=== PATIENT | male | born 1995 | race Caucasian/White ===

== ENCOUNTER 2016-06-19 01:30 | Emergency (ER) | payer BC ==
[2016-06-19 01:42] VITALS: BP 140/75
[2016-06-19] MEDS ORDERED: Naproxen 500 MG Tab PO ONE (01:54)
[2016-06-19] MEDS ORDERED: Penicillin V Potassium 500 MG Tab PO ONE (01:54)
--- NOTE | 2016-06-19 01:59 | EDM.PDOC ---
ED HPI ENT - General Chief Complaint: ENT Problem Stated Complaint: 2 TEETH HURTING Time Seen by Provider: 06/19/16 01:39 Source of Information: Reports: Patient, RN notes reviewed History Limitations: Reports: No limitations - History of Present Illness INITIAL COMMENTS - FREE TEXT/NARRATIVE: The patient states that he has had left upper and left lower tooth pain for about a year, but that it has gotten worse over the past 4 or 5 days. He states that he is having difficulty sleeping. He last saw a dentist in October or November 2015 and was told that he needs to see an oral surgeon for removal of several teeth. He has not gone to an oral surgeon, citing cost. No recent fever or oral drainage. - Related Data Allergies/ADRs: Allergies Allergy/AdvReac Type Severity Reaction Status Date / Time No Known Allergies Allergy Verified 06/19/16 01:37 Home Meds: Home Meds Naproxen 1 tab PO Q12H PRN #20 tablet 06/19/16 [Rx] Penicillin V Potassium 1 tab PO Q6HR #40 tab 06/19/16 [Rx] Past Medical History Genitourinary History: Reports: Renal calculus - Past Surgical History HEENT Surgical History: Reports: Adenoidectomy, Tonsillectomy Musculoskeletal Surgical History: Reports: Arthroscopic procedure (left knee) Social & Family History - Tobacco Use Smoking Status *Q: Current Every Day Smoker Years of Tobacco use: 9 Packs/Tins Daily: 2 - Caffeine Use Caffeine Use: Reports: Coffee, Soda - Alcohol Use Alcohol Use History: Yes Alcohol Use Frequency: Socially - Recreational Drug Use Recreational Drug Use: Yes Drug Use in Last 12 Months: Yes Recreational Drug Type: Reports: Marijuana/Hashish, Methamphetamine Recreational Drug Last Use: Late 2015 - Living Situation & Occupation Living situation: Reports: single, with significant other (Girlfriend and her daughter) 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[employer]) ED ROS ENT - Review of Systems Review Of Systems: See Below Constitutional: Reports: no symptoms HEENT: Reports: No symptoms Respiratory: Reports: No Symptoms Cardiovascular: Reports: No symptoms Endocrine: Reports: no symptoms GI/Abdominal: Reports: No symptoms : Reports: no symptoms Musculoskeletal: Reports: no symptoms Skin: Reports: no symptoms Neurological: Reports: No Symptoms Psychiatric: Reports: No symptoms Hematologic/Lymphatic: Reports: no symptoms Immunologic: Reports: no symptoms ED EXAM, ENT - Physical Exam Exam: See Below Exam Limited By: No limitations General Appearance: alert, WD/WN, no apparent distress Eye Exam: bilateral eye: EOMI, normal inspection Ears: normal external exam, normal canal, hearing grossly normal, normal TMs Nose: normal inspection, normal mucousa, no blood Mouth/Throat: Normal lips, Normal oropharynx, Other (Tooth #5 absent. Tooth #6 carious. Tooth #15 carious (possible source of pain). Tooth #16 with possible fracture (possible source of pain). Tooth #17 absent. Tooth #21 carious (and likely source of pain). Tooth #32 absent. No significant gingival swelling, and no oral abscess seen.) Head: atraumatic, normocephalic Neck: normal inspection, supple, non-tender, full range of motion. No: lymphadenopathy (L), lymphadenopathy (R) Course - Vital Signs Last Recorded V/S: Last Vital Signs Temp 37.7 C 06/19/16 01:38 Pulse 94 06/19/16 01:38 Resp 16 06/19/16 01:38 BP 140/75 06/19/16 01:38 Pulse Ox 99 06/19/16 01:38 - Orders/Labs/Meds Meds: Medications Discontinued Medications Generic Name Dose Route Start Last Admin Trade Name Freq PRN Reason Stop Dose Admin Naproxen 500 mg 06/19/16 01:54 Naprosyn PO 06/19/16 01:55 ONETIME ONE Penicillin V Potassium 500 mg 06/19/16 01:54 Veetids PO 06/19/16 01:55 ONETIME ONE - Re-Assessments/Exams Free Text/Narrative Re-Assessment/Exam: 06/19/16 01:55 The patient has several teeth that are carious and likely causing his dental pain. Additionally, however, it appears, and the patient confirms, that he has not brushed his teeth in a long time and is not taking care of his teeth at all. The patient was advised to followup with an oral surgeon, as he had been instructed to by his dentist. In the meantime, I am recommending that he begin brushing his teeth regularly. I have started the patient on penicillin and naproxen, and will e-prescribe the same for 10 days. Departure - Departure Time of Disposition: 01:56 Disposition: Home, Self-Care 01 Condition: good Clinical Impression: Dental caries Prescriptions: Penicillin V Potassium 1 tab PO Q6HR #40 tab Naproxen 1 tab PO Q12H PRN #20 tablet PRN Reason: Pain Referrals: Tremaine Aguilar Jr, MD [Primary Care Provider] - Forms: ED Department Discharge, Return to Work/School Form Additional Instructions: You were seen in the emergency room this morning for left upper and left lower dental pain. On examination, you have several significant cavities, which are likely the cause of your pain. You have been started on the antibiotic penicillin. Take one tablet every 6 hours, as prescribed. Finish the entire prescription unless told otherwise by a dentist or oral surgeon. You have been started on the pain reliever naproxen. Take one tablet every 12 hours, with food, as needed for pain. It is IMPERATIVE that you followup with an oral surgeon as instructed by your dentist. The ER is unable to treat dental issues.
== END 2016-06-19 02:12 | disposition home or self-care (01) ==
LOC: JD.ED 01:30
DX: K02.9 Dental caries, unspecified (principal); F17.210 Nicotine dependence, cigarettes, uncomplicated; Z79.899 Other long term (current) drug therapy; Z98.890 Other specified postprocedural states
CPT/HCPCS: 99282; A9270; 99283

== ENCOUNTER 2017-01-11 16:42 | Emergency (ER) | payer BC ==
[2017-01-11 16:55] VITALS: BP 148/92
--- NOTE | 2017-01-11 17:02 | EDM.PDOC ---
ED HPI GENERAL MEDICAL PROBLEM - General Chief Complaint: Upper Extremity Injury/Pain Stated Complaint: Right hand injury Time Seen by Provider: 01/11/17 17:01 Source of Information: Reports: Patient, RN Notes Reviewed History Limitations: Reports: No Limitations - History of Present Illness INITIAL COMMENTS - FREE TEXT/NARRATIVE: 21 year old male presents to the clinic today with puncture wound to his right hand. He punched the visor in his car and suffered a puncture wound from a piece of metal. The wound is located to the web, between the right 3rd and 4th fingers. He is unsure of his last tetanus. He has full ROM and strength to his right hand. No numbness or tingling. right Knuckle Pain Score (Numeric/FACES): 5 - Related Data Allergies Allergy/AdvReac Type Severity Reaction Status Date / Time No Known Allergies Allergy Verified 01/11/17 16:55 Home Meds: Home Meds . [No Known Home Meds] 01/11/17 [History] Past Medical History Cardiovascular History: Reports: Heart Murmur, Other (See Below) Other Cardiovascular History: heart murmur as a child, not treated Genitourinary History: Reports: Renal Calculus - Past Surgical History HEENT Surgical History: Reports: Adenoidectomy, Tonsillectomy Musculoskeletal Surgical History: Reports: Arthroscopic Procedure Social & Family History - Family History Family Medical History: Noncontributory - Tobacco Use Smoking Status *Q: Current Every Day Smoker Years of Tobacco use: 9 Packs/Tins Daily: 2 - Caffeine Use Caffeine Use: Reports: Coffee - Recreational Drug Use Recreational Drug Use: No Drug Use in Last 12 Months: Yes Recreational Drug Type: Reports: Marijuana/Hashish, Methamphetamine Recreational Drug Last Use: Late 2015 - Living Situation & Occupation Living situation: Reports: Single, with Significant Other Occupation: Employed Review of Systems - Review of Systems Review Of Systems: See Below Musculoskeletal: Reports: Hand Pain Skin: Reports: Wound Neurological: Reports: No Symptoms. Denies: Numbness, Tingling ED EXAM, GENERAL - Physical Exam Exam: See Below Exam Limited By: No Limitations General Appearance: Alert, WD/WN, No Apparent Distress Extremities: Other (Full ROM to all 5 digits with equal strength. He can differentiate sharp versus dull sensation to both sides of fingers. CMS intact. Modified cristy's test is negative. ) Neurological: Alert, No Motor/Sensory Deficits Skin Exam: Warm, Dry, Normal Color, Other (0.5cm puncture wound to web between 3rd and 4th fingers. No surround erythema. Wound is somewhat deep. ) ED TRAUMA EXTREMITY PROCEDURES - Laceration/Wound Repair Right Hand Lac/Wound Length In cm: 0.5 Appearance: Subcutaneous, Linear, Clean Distal NVT: Neuro & Vascular Intact, No Tendon Injury Anesthetic Type: Local Local Anesthesia - Lidocaine (Xylocaine): 1% Plain Local Anesthetic Volume: 2cc Skin Prep: Saline Saline Irrigation (cc's): 60 Exploration/Debridement/Repair: Wound Explored, In a Bloodless Field, Explored to Base, No Foreign Material Found Suture Size: 4-0 # of Sutures: 1 Suture Type: Nylon, Interrupted, Simple Sterile Dressing Applied: Nurse Tetanus Status Addressed: Yes Complications: No Course - Vital Signs Last Recorded V/S: Last Vital Signs Temp 97 F 01/11/17 16:44 Pulse 81 01/11/17 16:44 Resp 18 01/11/17 16:44 BP 148/92 H 01/11/17 16:44 Pulse Ox 98 01/11/17 16:44 - Orders/Labs/Meds Orders: Active Orders 24 hr Category Date Time Status Vaccines to be Administered [RC] PER UNIT ROUTINE Care 01/11/17 17:18 Ordered Meds: Medications Discontinued Medications Generic Name Dose Route Start Last Admin Trade Name Carson PRN Reason Stop Dose Admin Diphtheria/Tetanus/Acell Pertussis 0.5 ml 01/11/17 17:18 Adacel IM 01/11/17 17:19 .ONCE ONE Lidocaine HCl 50 ml 01/11/17 17:13 01/11/17 17:17 Xylocaine 1% SUBCUT 01/11/17 17:14 50 ml NOW STA Administration Departure - Departure Time of Disposition: 17:37 Disposition: Home, Self-Care 01 Condition: Good Clinical Impression: Laceration, Tetanus toxoid inoculation - Discharge Information Referrals: Tremaine Aguilar Jr, MD [Primary Care Provider] - Forms: ED Department Discharge Additional Instructions: Laceration with suture repair Try to keep initial dressing in place for 24 hours After 24 hours, you can gently wash the wound with gentle soap and water Do not submerge the area in water until the sutures are out Apply antibiotic ointment and keep the wound covered for first 2-3 days then leave open to air Keep wound covered if there is a chance it can get dirty Sutures need to be removed in 7 days [facility] removes sutures for free. Their hours are 8am -6pm Sunday through Sunday. Return to clinic if signs or symptoms of infection arise, including increased redness, swelling, drainage, or fever Tylenol or Ibuprofen as needed for pain - My Orders Last 24 Hours: My Active Orders 01/11/17 17:18 Vaccines to be Administered [RC] PER UNIT ROUTINE - Assessment/Plan Last 24 Hours: My Active Orders 01/11/17 17:18 Vaccines to be Administered [RC] PER UNIT ROUTINE
[2017-01-11] MEDS ORDERED: Lidocaine 1% 50 ML MDV SUBCUT STA (17:13)
[2017-01-11] MEDS ORDERED: Diphtheria,Pertussis(Acell),Tetanus Vaccine 0.5 ML SDV IM ONE (17:18)
== END 2017-01-11 17:50 | disposition home or self-care (01) ==
LOC: JD.ED 16:42
DX: S61.411A Laceration without foreign body of right hand, initial encounter (principal); F17.210 Nicotine dependence, cigarettes, uncomplicated; W25.XXXA Contact with sharp glass, initial encounter; Z23 Encounter for immunization
CPT/HCPCS: 12001; 90471; 90715; 99283-25

== ENCOUNTER 2017-07-29 12:17 | Emergency (ER) | payer BC ==
[2017-07-29 12:29] VITALS: BP 153/103
[2017-07-29] MEDS ORDERED: Clindamycin Phosphate 600 MG in Sodium Chloride 0.9% 100 ML IV ONE (12:45)
[2017-07-29] MEDS ORDERED: Sodium Chloride 0.9% 1,000 ML IV ONE (12:45)
[2017-07-29] MEDS ORDERED: LORazepam 2 MG/ML SDV IVPUSH ONE (12:46)
--- NOTE | 2017-07-29 12:47 | EDM.PDOCBH ---
ED HPI GENERAL MEDICAL PROBLEM - General Chief Complaint: Drug or Alcohol Abuse Stated Complaint: ISSUES FROM USING METH Time Seen by Provider: 07/29/17 12:35 Source of Information: Reports: Patient History Limitations: Reports: No Limitations - History of Present Illness INITIAL COMMENTS - FREE TEXT/NARRATIVE: Jono is a 22yo male presents ambulatory to ED, drove himself here after injecting Methamphetamine mixed with Propel into his left arm (just anterior to AC region) around 2 hours [employer]. A few minutes after injecting he felt a flushing sensation with redness around injection site, "hives" up his left arm and also to his right arm. He has felt a numbness sensation to his left upper arm. He became concerned and paranoid and drove himself to the ER. Upon arrival he is twitching. During my interview and exam he states his tattoo to his right forearm was moving. He denies sensations of CP, palpitations, DORMAN, SOB or coughing. No f/c/s as of yet. He has had diaphoresis. He admits to using meth, injecting and smoking, since the age of 12. Denies sharing needles but does state he reuses his needles. He is not interested in treatment at this time. He also admits to smoking marajuana and cigarettes. Onset: Today Right Upper Arm Pain Score (Numeric/FACES): 5 - Related Data Allergies Allergy/AdvReac Type Severity Reaction Status Date / Time No Known Allergies Allergy Verified 07/29/17 12:22 Home Meds: Home Meds Sertraline [Zoloft] 100 mg PO DAILY 07/29/17 [History] Past Medical History Cardiovascular History: Reports: Heart Murmur, Other (See Below) Other Cardiovascular History: heart murmur as a child, not treated Genitourinary History: Reports: Renal Calculus Psychiatric History: Reports: Anxiety - Past Surgical History HEENT Surgical History: Reports: Adenoidectomy, Tonsillectomy Musculoskeletal Surgical History: Reports: Arthroscopic Procedure Social & Family History - Family History Family Medical History: Noncontributory - Tobacco Use Smoking Status *Q: Current Every Day Smoker Years of Tobacco use: 10 Packs/Tins Daily: 2 - Caffeine Use Caffeine Use: Reports: Coffee - Recreational Drug Use Recreational Drug Use: Yes Drug Use in Last 12 Months: Yes Recreational Drug Type: Reports: Marijuana/Hashish, Methamphetamine Recreational Drug Last Use: Late 2016 - Living Situation & Occupation Living situation: Reports: Single, with Significant Other Occupation: Employed ED ROS GENERAL - Review of Systems Review Of Systems: See Below Constitutional: Reports: Diaphoresis. Denies: Fever, Chills, Malaise HEENT: Reports: No Symptoms Respiratory: Reports: No Symptoms Cardiovascular: Reports: No Symptoms GI/Abdominal: Reports: No Symptoms Musculoskeletal: Reports: Arm Pain (right upper arm) Skin: Reports: Other (pain to rt upper arm, intermittent numbness to rt upper arm) Psychiatric: Reports: Anxiety ED EXAM, BEHAVIORAL HEALTH - Physical Exam Exam: See Below Exam Limited By: No Limitations General Appearance: Alert, WD/WN, Anxious, Other (twitching) Eye Exam: Bilateral Eye: Conjunctival Injection, EOMI, PERRL (pupils 2-3mm bilat ) Ears: Normal External Exam, Hearing Grossly Normal Nose: Normal Inspection Throat/Mouth: Normal Inspection. No: Normal Teeth (poor dentition), Normal Gums (poor gingival health) Head: Atraumatic, Normocephalic Neck: Normal Inspection Respiratory/Chest: No Respiratory Distress, Lungs Clear, Normal Breath Sounds Cardiovascular: Regular Rate, Rhythm, Tachycardia GI/Abdominal: Normal Bowel Sounds, Soft (Male) Exam: Deferred Rectal (Males) Exam: Deferred Neurological: Alert, Oriented x 3 Psychiatric: Alert, Restless, Visual Hallucinations, Paranoid Thoughts. No: Suicidal Plan, Suicidal Thoughts Skin Exam: Needle maxwell (injection site to vein just anterior to rt AC of upper arm. Site is with mild erythema. Palpation anterior to site is firm and tender consistent with phlebitis. No discharge from site. ), Tattoo(s) COURSE, BEHAVIORAL HEALTH COMP - Course Vital Signs: Last Vital Signs Temp 96.7 F 07/29/17 12:23 Pulse 125 H 07/29/17 12:23 Resp 15 07/29/17 12:23 BP 153/103 H 07/29/17 12:23 Pulse Ox 100 07/29/17 12:23 Orders, Labs, Meds: Active Orders 24 hr Category Date Time Status CULTURE BLOOD [BC] Stat Lab 07/29/17 13:15 Received CULTURE BLOOD [BC] Stat Lab 07/29/17 13:30 Received Blood Culture x2 Reflex Set [OM.PC] Stat Oth 07/29/17 12:46 Ordered Laboratory Tests 07/29/17 07/29/17 Range/Units 13:00 13:00 WBC 10.31 H (4.23-9.07) K/mm3 RBC 5.17 (4.63-6.08) M/mm3 Hgb 14.6 (13.7-17.5) gm/L Hct 42.6 (40.1-51.0) % MCV 82.4 (79.0-92.2) fl MCH 28.2 (25.7-32.2) pg MCHC 34.3 (32.2-35.5) g/dl RDW Std Deviation 38.8 (35.1-43.9) fL Plt Count 226 (163-337) K/mm3 MPV 9.8 (9.4-12.3) fl Neut % (Auto) 80.3 H (34.0-67.9) % Lymph % (Auto) 10.7 L (21.8-53.1) % Wood % (Auto) 8.1 (5.3-12.2) % Eos % (Auto) 0.6 L (0.8-7.0) Baso % (Auto) 0.2 (0.1-1.2) % Neut # (Auto) 8.29 H (1.78-5.38) K/mm3 Lymph # (Auto) 1.10 L (1.32-3.57) K/mm3 Wood # (Auto) 0.83 H (0.30-0.82) K/mm3 Eos # (Auto) 0.06 (0.04-0.54) K/mm3 Baso # (Auto) 0.02 (0.01-0.08) K/mm3 Sodium 141 (136-145) mEq/L Potassium 3.7 (3.5-5.1) mEq/L Chloride 105 (98-107) mEq/L Carbon Dioxide 27 (21-32) mEq/L Anion Gap 12.7 (5-15) BUN 19 H (7-18) mg/dL Creatinine 0.9 (0.7-1.3) mg/dL Est Cr Clr Drug Dosing 113.68 mL/min Estimated GFR (MDRD) > 60 (>60) mL/min BUN/Creatinine Ratio 21.1 H (14-18) Glucose 116 H (74-106) mg/dL Calcium 9.5 (8.5-10.1) mg/dL Total Bilirubin 0.8 (0.2-1.0) mg/dL AST 13 L (15-37) U/L ALT 24 (16-63) U/L Alkaline Phosphatase 124 H (46-116) U/L Total Protein 8.0 (6.4-8.2) g/dl Albumin 4.2 (3.4-5.0) g/dl Globulin 3.8 gm/dL Albumin/Globulin Ratio 1.1 (1-2) Medications Discontinued Medications Generic Name Dose Route Start Last Admin Trade Name Freq PRN Reason Stop Dose Admin Clindamycin Phosphate 600 mg/ 104 mls @ 100 mls/hr 07/29/17 12:45 07/29/17 13 :35 Sodium Chloride IV 07/29/17 13:47 100 mls/hr ONETIME ONE Administration Sodium Chloride 1,000 mls @ 999 mls/hr 07/29/17 12:45 07/29/17 13:33 Normal Saline IV 07/29/17 13:45 999 mls/hr ONETIME ONE Administration Lorazepam 1 mg 07/29/17 12:46 07/29/17 13:32 Ativan IVPUSH 07/29/17 12:47 1 mg ONETIME ONE Administration Re-Assessment/Re-Exam: Patient is more calm but is now mildly aggitated asking when he can leave. IV abx infusing at present time. Patient rec'd IV abx, 1L of NS IV, ativan which helped his twitching. He is not interested in drug treatment. I will rx PO clindamycin for coverage. Departure - Departure Time of Disposition: 15:30 Disposition: Home, Self-Care 01 Condition: Fair Clinical Impression: Drug abuse, Phlebitis and thrombophlebitis - Discharge Information Instructions: Chemical Dependency, Substance Use Disorder, Finding Treatment for Addiction, Phlebitis, [id number], Stimulant Use Disorder-Methamphetamines Referrals: Tremaine Aguilar Jr, MD [Primary Care Provider] - Additional Instructions: Clindamycin oral antibiotic 4 times daily Push fluids Tylenol if needed for pain/fever Warm compresses to arm/affected area Stop using drugs- [facility] is available 16/10 for treatment- call [phone] or stop by their building for assistance with this. Do not drive for the next 24 hours due to methamphetamine use Follow up with Primary care early next week for recheck of arm. Return to ER if needed. - My Orders Last 24 Hours: My Active Orders 07/29/17 12:46 Blood Culture x2 Reflex Set [OM.PC] Stat 07/29/17 13:15 CULTURE BLOOD [BC] Stat 07/29/17 13:30 CULTURE BLOOD [BC] Stat - Assessment/Plan Last 24 Hours: My Active Orders 07/29/17 12:46 Blood Culture x2 Reflex Set [OM.PC] Stat 07/29/17 13:15 CULTURE BLOOD [BC] Stat 07/29/17 13:30 CULTURE BLOOD [BC] Stat
== END 2017-07-29 15:32 | disposition home or self-care (01) ==
LOC: JD.ED 12:17
DX: T80.1XXA Vascular complications following infusion, transfusion and therapeutic injection, initial encounter (principal); I80.8 Phlebitis and thrombophlebitis of other sites; F19.10 Other psychoactive substance abuse, uncomplicated; F17.210 Nicotine dependence, cigarettes, uncomplicated; Z87.442 Personal history of urinary calculi; Z79.899 Other long term (current) drug therapy
CPT/HCPCS: 36415; 80053; 85025; 87040; 96365; 96375; 99283; J2060; J7030; J7040; 99284

== ENCOUNTER 2018-04-07 00:52 | Inpatient (IN) | payer BC ==
[2018-04-07] MEDS ORDERED: LORazepam 0.5 MG Tab PO ONE (02:20)
--- NOTE | 2018-04-07 02:20 | EDM.PDOCBH ---
ED HPI GENERAL MEDICAL PROBLEM - General Chief Complaint: Drug or Alcohol Abuse Stated Complaint: MEDICAL CLEARANCE Time Seen by Provider: 04/07/18 01:04 Source of Information: Reports: Patient History Limitations: Reports: No Limitations - History of Present Illness INITIAL COMMENTS - FREE TEXT/NARRATIVE: The patient presents by [place] [employer] for possible overdose. He admits to injecting meth tonight and after that he felt his heart racing. He went up some stairs and he felt his heart racing and the collapsed. His girlfriend he did have some seizure activity. The patient woke up a few seconds later and was wondering what happened. He says it feels like his heart is still racing. He has no chest pain or shortness fo breath. He did not drink any alcohol. He did use some marijuana in the past few days. He has no abdominal pain, nausea or vomiting. He has no medical problems. Onset: Sudden Duration: Minutes: Severity: Moderate Improves with: Reports: None Worsens with: Reports: None Associated Symptoms: Reports: No Other Symptoms Chest Pain Score (Numeric/FACES): 3 - Related Data Allergies Allergy/AdvReac Type Severity Reaction Status Date / Time No Known Allergies Allergy Verified 04/07/18 01:02 Home Meds: Home Meds Sertraline [Zoloft] 100 mg PO DAILY 07/29/17 [History] Past Medical History Cardiovascular History: Reports: Heart Murmur, Other (See Below) Other Cardiovascular History: heart murmur as a child, not treated Genitourinary History: Reports: Renal Calculus Psychiatric History: Reports: Anxiety - Past Surgical History HEENT Surgical History: Reports: Adenoidectomy, Tonsillectomy Musculoskeletal Surgical History: Reports: Arthroscopic Procedure Social & Family History - Family History Family Medical History: Noncontributory - Tobacco Use Smoking Status *Q: Current Every Day Smoker Years of Tobacco use: 10 Packs/Tins Daily: 2 - Caffeine Use Caffeine Use: Reports: Coffee - Recreational Drug Use Recreational Drug Use: Yes Drug Use in Last 12 Months: Yes Recreational Drug Type: Reports: Marijuana/Hashish, Methamphetamine Recreational Drug Use Frequency: Daily - Living Situation & Occupation Living situation: Reports: Single, with Significant Other Occupation: Employed ED ROS GENERAL - Review of Systems Review Of Systems: See Below Constitutional: Reports: No Symptoms HEENT: Reports: No Symptoms Respiratory: Reports: No Symptoms Cardiovascular: Reports: Palpitations. Denies: Chest Pain Endocrine: Reports: No Symptoms GI/Abdominal: Reports: No Symptoms : Reports: No Symptoms Musculoskeletal: Reports: No Symptoms ED EXAM, BEHAVIORAL HEALTH - Physical Exam Exam: See Below Exam Limited By: No Limitations General Appearance: Alert, No Apparent Distress Ears: Normal External Exam Nose: Normal Inspection Head: Atraumatic, Normocephalic Neck: Normal Inspection Respiratory/Chest: No Respiratory Distress, Lungs Clear, Normal Breath Sounds Cardiovascular: No Edema, No Murmur, Tachycardia, Irregularly Irregular GI/Abdominal: Soft, Non-Tender, No Organomegaly, No Mass Back Exam: Normal Inspection Extremities: Normal Inspection EKG INTERPRETATION EKG Date: 04/07/18 Time: 01:22 Rhythm: A-Fib Rate (Beats/Min): 149 [place]: RAD-Right [place] Deviation QRS: Normal ST-T: Normal QT: Normal COURSE, BEHAVIORAL HEALTH COMP - Course Vital Signs: Last Vital Signs Temp 97 F 04/07/18 00:56 Pulse 132 H 04/07/18 00:56 Resp 17 04/07/18 00:56 BP 124/110 H 04/07/18 00:56 Pulse Ox 97 04/07/18 00:56 Orders, Labs, Meds: Active Orders 24 hr Category Date Time Status Cardiac Monitoring [RC] . DIRECTED Care 04/07/18 01:04 Active EKG Documentation Completion [RC] STAT Care 04/07/18 01:05 Active Peripheral IV Care [RC] . DIRECTED Care 04/07/18 03:06 Ordered Diltiazem 125 mg Med 04/07/18 03:15 Ordered Sodium Chloride 0.9% [Normal Saline] 100 ml IV TITRATE Diltiazem [Cardizem] Med 04/07/18 03:06 Once 10 mg IVPUSH ONETIME ONE Sodium Chloride 0.9% [Normal Saline] 1,000 ml Med 04/07/18 03:06 Ordered IV ONETIME Sodium Chloride 0.9% [Saline Flush] Med 04/07/18 03:06 Ordered 10 ml FLUSH ASDIRECTED PRN Peripheral IV Insertion Adult [OM.PC] Routine Oth 04/07/18 03:06 Ordered Laboratory Tests 04/07/18 04/07/18 04/07/18 Range/Units 01:15 01:15 01:55 WBC 11.43 H (4.23-9.07) K/mm3 RBC 6.12 H (4.63-6.08) M/mm3 Hgb 17.4 (13.7-17.5) gm/L Hct 49.7 (40.1-51.0) % MCV 81.2 (79.0-92.2) fl MCH 28.4 (25.7-32.2) pg MCHC 35.0 (32.2-35.5) g/dl RDW Std Deviation 38.8 (35.1-43.9) fL Plt Count 327 (163-337) K/mm3 MPV 10.2 (9.4-12.3) fl Neut % (Auto) 73.1 H (34.0-67.9) % Lymph % (Auto) 17.3 L (21.8-53.1) % [place] % (Auto) 8.6 (5.3-12.2) % Eos % (Auto) 0.6 L (0.8-7.0) Baso % (Auto) 0.2 (0.1-1.2) % Neut # (Auto) 8.36 H (1.78-5.38) K/mm3 Lymph # (Auto) 1.98 (1.32-3.57) K/mm3 [place] # (Auto) 0.98 H (0.30-0.82) K/mm3 Eos # (Auto) 0.07 (0.04-0.54) K/mm3 Baso # (Auto) 0.02 (0.01-0.08) K/mm3 Manual Slide Review Normal smear Sodium 137 (136-145) mEq/L Potassium 4.6 (3.5-5.1) mEq/L Chloride 103 (98-107) mEq/L Carbon Dioxide 24 (21-32) mEq/L Anion Gap 14.6 (5-15) BUN 14 (7-18) mg/dL Creatinine 0.8 (0.7-1.3) mg/dL Est Cr Clr Drug Dosing 131.31 mL/min Estimated GFR (MDRD) > 60 (>60) mL/min BUN/Creatinine Ratio 17.5 (14-18) Glucose 100 (74-106) mg/dL Calcium 9.6 (8.5-10.1) mg/dL Total Bilirubin 0.2 (0.2-1.0) mg/dL AST 13 L (15-37) U/L ALT 30 (16-63) U/L Alkaline Phosphatase 156 H (46-116) U/L Troponin I 0.051 (0.00-0.056) ng/mL Total Protein 8.1 (6.4-8.2) g/dl Albumin 4.0 (3.4-5.0) g/dl Globulin 4.1 gm/dL Albumin/Globulin Ratio 1.0 (1-2) Urine Opiates Screen Negative (ACRKCU=981) Ur Buprenorphine Scrn Negative (CUTOFF=10) Ur Oxycodone Screen Negative (XYB9ES=385) Urine Methadone Screen Negative (KMX1KC=081) Ur Propoxyphene Screen Negative (DQLRRW=300) Ur Barbiturates Screen Negative (BSVJRL=532) Ur Tricyclics Screen Negative (ORILQV=875) Ur Phencyclidine Scrn Negative (CUTOFF=25) Ur Amphetamine Screen Presumptive positive H (JAQTRY=894) U Methamphetamines Scrn Negative (USNYNF=681) U Benzodiazepines Scrn Negative (ZCIHXL=129) U Cocaine Metab Screen Negative (GJYJTV=133) U Marijuana (THC) Screen Presumptive positive H (CUTOFF=50) Ethyl Alcohol 0.00 (0.00) gm% Medications Discontinued Medications Generic Name Dose Route Start Last Admin Trade Name Carson PRN Reason Stop Dose Admin Diltiazem HCl 60 mg 04/07/18 02:21 04/07/18 02:24 Cardizem PO 04/07/18 02:22 60 mg ONETIME ONE Administration Lorazepam 0.5 mg 04/07/18 02:20 04/07/18 02:24 Ativan PO 04/07/18 02:21 0.5 mg ONETIME ONE Administration Re-Assessment/Re-Exam: I ordered an EKG, labs, and a urine drug screen. His EKG shows A-fib. His WBC was elevated at 11.43. His alk phos was slightly elevated at 156. His troponin was negative. His UDS was positive for amphetamines. His marijuana was also positive. His ETOH was 0. His heart rate is still very high. I gave him some ativan 0.5mg by mouth and cardizem 60mg by mouth. There has been very little to no effect with the meds. He is sleeping and his heart rate is jumping into the 160s at times. I have ordered an IV NS 1L bolus , cardizem 10mg IV push and then a drip at 10mg/hr. I feel I have to admit him to the ICU. I will admit to the hospitalist service. Departure - Departure Time of Disposition: 03:10 Disposition: Admitted As Inpatient 64 Condition: Fair Clinical Impression: Atrial fibrillation with RVR, Methamphetamine intoxication Syncope Qualifiers: Syncope type: unspecified Qualified Code(s): R55 - Syncope and collapse - Discharge Information Referrals: PCP,None [Primary Care Provider] - - My Orders Last 24 Hours: My Active Orders 04/07/18 01:04 Cardiac Monitoring [RC] . DIRECTED 04/07/18 01:05 EKG Documentation Completion [RC] STAT 04/07/18 03:06 Peripheral IV Care [RC] . DIRECTED Diltiazem [Cardizem] 10 mg IVPUSH ONETIME ONE Sodium Chloride 0.9% [Normal Saline] 1,000 ml IV ONETIME Sodium Chloride 0.9% [Saline Flush] 10 ml FLUSH ASDIRECTED PRN Peripheral IV Insertion Adult [OM.PC] Routine 04/07/18 03:15 Diltiazem 125 mg Sodium Chloride 0.9% [Normal Saline] 100 ml IV TITRATE - Assessment/Plan Last 24 Hours: My Active Orders 04/07/18 01:04 Cardiac Monitoring [RC] . DIRECTED 04/07/18 01:05 EKG Documentation Completion [RC] STAT 04/07/18 03:06 Peripheral IV Care [RC] . DIRECTED Diltiazem [Cardizem] 10 mg IVPUSH ONETIME ONE Sodium Chloride 0.9% [Normal Saline] 1,000 ml IV ONETIME Sodium Chloride 0.9% [Saline Flush] 10 ml FLUSH ASDIRECTED PRN Peripheral IV Insertion Adult [OM.PC] Routine 04/07/18 03:15 Diltiazem 125 mg Sodium Chloride 0.9% [Normal Saline] 100 ml IV TITRATE
[2018-04-07] MEDS ORDERED: Diltiazem IR 60 MG Tab PO ONE (02:21)
[2018-04-07] MEDS ORDERED: Diltiazem 50 MG/10 ML SDV IVPUSH ONE (03:06)
[2018-04-07] MEDS ORDERED: Sodium Chloride 0.9% 1,000 ML IV ONE (03:06)
[2018-04-07] MEDS ORDERED: Diltiazem 125 MG in Sodium Chloride 0.9% 100 ML IV SCH (03:15)
[2018-04-07] MEDS: Sodium Chloride 0.9% 10 ML Syringe FLUSH PRN (03:16)
[2018-04-07] MEDS ORDERED: Aspirin 81 MG Tab.Chew PO ONE (05:46)
[2018-04-07] MEDS ORDERED: Albuterol/Ipratropium 3.0-0.5 MG/3 ML Neb Soln NEB PRN (07:28)
[2018-04-07] MEDS ORDERED: Docusate Sodium 100 MG Cap PO PRN (07:28)
[2018-04-07] MEDS ORDERED: HYDROmorphone 1 MG/ML Syringe IVPUSH PRN (07:28)
[2018-04-07] MEDS ORDERED: Ondansetron 4 MG/2 ML SDV IV PRN (07:28)
[2018-04-07] MEDS ORDERED: hydrALAZINE 20 MG/ML SDV IVPUSH PRN (07:28)
[2018-04-07] MEDS ORDERED: Bisacodyl 5 MG Tab PO PRN (07:28)
[2018-04-07] MEDS ORDERED: Ketorolac 60 MG/2 ML SDV IM PRN (07:28)
[2018-04-07] MEDS ORDERED: Polyethylene Glycol 3350 Powder 17 GM Packet PO PRN (07:28)
[2018-04-07] MEDS ORDERED: Promethazine 12.5 MG in Sodium Chloride 0.9% 50 ML IV PRN (07:28)
[2018-04-07] MEDS ORDERED: LORazepam 2 MG/ML SDV IVPUSH PRN (07:28)
[2018-04-07] MEDS ORDERED: Metoprolol Tartrate 5 MG/5 ML SDV IVPUSH PRN (07:28)
--- NOTE | 2018-04-07 07:33 | PCM.HP ---
H&P History of Present Illness - General Date of Service: 04/07/18 Admit Problem/Dx: Admission Diagnosis/Problem Admission Diagnosis/Problem Atrial fibrillation Source of Information: Patient, Family, Old Records, Provider, RN Notes Reviewed History Limitations: Reports: No Limitations - History of Present Illness Initial Comments - Free Text/Narative: This is a 23 yo young white male with past medical hx/o anxiety, depression and chronic substance abuse who was brought in by local police for possible drug overdose. He admits to injecting himself with meth last night and after that he started feeling unwell w/ palpitation, tremors, anxiety associated reports of seizure like activity w/ collapsed. The event was brief but could not remember the ensuing event after he woke up. He denies any chest pain or short shortness of breath. He did however still complaints of racing heart rate. Patient was initially seen and evaluated in ED. His initial work up shows a CBC remarkable for WBC of 11.43, RBC of 6.12, Neutrophils of 73.1%, and Lymphocytes of 17.3%. His chemistry is significant of AST of 13 and Alk phos of 156. His UA is positive for Ampheth and Marijuana. His OCTAVIO level is 0. Patient received initial treatment in ED before he was sent to use for further management. He is essentially here for medical management of new onset of atrial fibrillation and meth/marijuana detoxification. Chest Pain Score (Numeric/FACES): 3 - Related Data Allergies/Adverse Reactions: Allergies Allergy/AdvReac Type Severity Reaction Status Date / Time No Known Allergies Allergy Verified 04/07/18 01:02 Home Medications: Home Meds Sertraline [Zoloft] 100 mg PO DAILY 07/29/17 [History] Past Medical History Cardiovascular History: Reports: Heart Murmur, Other (See Below) Other Cardiovascular History: heart murmur as a child, not treated Genitourinary History: Reports: Renal Calculus Psychiatric History: Reports: Anxiety - Past Surgical History HEENT Surgical History: Reports: Adenoidectomy, Tonsillectomy Musculoskeletal Surgical History: Reports: Arthroscopic Procedure Social & Family History - Family History Family Medical History: Noncontributory - Tobacco Use Smoking Status *Q: Current Every Day Smoker Years of Tobacco use: 10 Packs/Tins Daily: 2 - Caffeine Use Caffeine Use: Reports: Coffee - Recreational Drug Use Recreational Drug Use: Yes Drug Use in Last 12 Months: Yes Recreational Drug Type: Reports: Marijuana/Hashish, Methamphetamine Recreational Drug Use Frequency: Daily - Living Situation & Occupation Living situation: Reports: Single, with Significant Other Occupation: Employed H&P Review of Systems - Review of Systems: Review Of Systems: See Below General: Reports: Other (sweats). Denies: Fever, Chills, Malaise, Weakness, Fatigue HEENT: Reports: No Symptoms Pulmonary: Denies: Shortness of Breath, Pleuritic Chest Pain, Cough, Sputum Cardiovascular: Reports: Palpitations, Lightheadedness. Denies: Chest Pain, Dyspnea on Exertion, Edema, Blood Pressure Problem Gastrointestinal: Denies: Abdominal Pain, Constipation, Diarrhea, Decreased Appetite, Nausea, Vomiting Genitourinary: Reports: No Symptoms Musculoskeletal: Reports: No Symptoms Skin: Denies: Cyanosis, Mottled, Pallor, Diaphoresis, Bruising, Rash, Erythema Psychiatric: Reports: Confusion, Anxiety. Denies: Depression, Agitation, Hallucinations, Suicidal Ideation, Homicidal Ideation Neurological: Reports: Seizure, Tremors. Denies: Dizziness, Headache, Difficulty Walking, Weakness, Gait Disturbance Hematologic/Lymphatic: Reports: No Symptoms Immunologic: Reports: No Symptoms Exam - Exam Exam: See Below - Vital Signs Vital Signs: Last Vital Signs Temp 36.1 C 04/07/18 00:56 Pulse 132 H 04/07/18 00:56 Resp 17 04/07/18 00:56 BP 124/110 H 04/07/18 00:56 Pulse Ox 97 04/07/18 00:56 Weight: 65.771 kg - Exam General: Alert, Oriented, Cooperative HEENT: Conjunctiva Clear, EACs Clear, EOMI, Hearing Intact, Mucosa Moist & [place] , Nares Patent, Normal Nasal Septum, Posterior Pharynx Clear, Pupils Equal, Pupils Reactive, Other (ear lobes w/ earings) Neck: Supple Lungs: Normal Respiratory Effort, Decreased Breath Sounds Cardiovascular: Regular Rate, Regular Rhythm GI/Abdominal Exam: Normal Bowel Sounds, Soft, Non-Tender, No Organomegaly, No Distention, No Abnormal Bruit, No Mass (Male) Exam: Deferred Rectal (Males) Exam: Deferred Back Exam: Normal Inspection, Full Range of Motion Extremities: Normal Inspection, Normal Range of Motion, Non-Tender, No Pedal Edema, Normal Capillary Refill Peripheral Pulses: 3+: Posterior Tibial (L), Posterior Tibial (R), Dorsalis Pedis (L), Dorsalis Pedis (R) Skin: Warm, Dry, Intact, Other (body tattoos ) Neuro Extensive - Mental Status: Oriented x3, Normal Cognition, Memory Intact Neuro Extensive - Motor, Sensory, Reflexes: CN II-XII Intact (limited as he does not feel good but grossly intact) Psychiatric: Alert, Normal Affect, Normal Mood - Patient Data Lab Results Last 24 hrs: Laboratory Results - last 24 hr 04/07/18 04/07/18 04/07/18 Range/Units 01:15 01:15 01:55 WBC 11.43 H (4.23-9.07) K/mm3 RBC 6.12 H (4.63-6.08) M/mm3 Hgb 17.4 (13.7-17.5) gm/L Hct 49.7 (40.1-51.0) % MCV 81.2 (79.0-92.2) fl MCH 28.4 (25.7-32.2) pg MCHC 35.0 (32.2-35.5) g/dl RDW Std Deviation 38.8 (35.1-43.9) fL Plt Count 327 (163-337) K/mm3 MPV 10.2 (9.4-12.3) fl Neut % (Auto) 73.1 H (34.0-67.9) % Lymph % (Auto) 17.3 L (21.8-53.1) % [place] % (Auto) 8.6 (5.3-12.2) % Eos % (Auto) 0.6 L (0.8-7.0) Baso % (Auto) 0.2 (0.1-1.2) % Neut # (Auto) 8.36 H (1.78-5.38) K/mm3 Lymph # (Auto) 1.98 (1.32-3.57) K/mm3 [place] # (Auto) 0.98 H (0.30-0.82) K/mm3 Eos # (Auto) 0.07 (0.04-0.54) K/mm3 Baso # (Auto) 0.02 (0.01-0.08) K/mm3 Manual Slide Review Normal smear Sodium 137 (136-145) mEq/L Potassium 4.6 (3.5-5.1) mEq/L Chloride 103 (98-107) mEq/L Carbon Dioxide 24 (21-32) mEq/L Anion Gap 14.6 (5-15) BUN 14 (7-18) mg/dL Creatinine 0.8 (0.7-1.3) mg/dL Est Cr Clr Drug Dosing 131.31 mL/min Estimated GFR (MDRD) > 60 (>60) mL/min BUN/Creatinine Ratio 17.5 (14-18) Glucose 100 (74-106) mg/dL Calcium 9.6 (8.5-10.1) mg/dL Total Bilirubin 0.2 (0.2-1.0) mg/dL AST 13 L (15-37) U/L ALT 30 (16-63) U/L Alkaline Phosphatase 156 H (46-116) U/L Troponin I 0.051 (0.00-0.056) ng/mL Total Protein 8.1 (6.4-8.2) g/dl Albumin 4.0 (3.4-5.0) g/dl Globulin 4.1 gm/dL Albumin/Globulin Ratio 1.0 (1-2) Urine Opiates Screen Negative (TSKSWB=168) Ur Buprenorphine Scrn Negative (CUTOFF=10) Ur Oxycodone Screen Negative (WSO2AN=880) Urine Methadone Screen Negative (IOF2QL=058) Ur Propoxyphene Screen Negative (NCKOUN=512) Ur Barbiturates Screen Negative (PBJRUI=625) Ur Tricyclics Screen Negative (QBZLCD=078) Ur Phencyclidine Scrn Negative (CUTOFF=25) Ur Amphetamine Screen Presumptive positive H (HZLBQD=978) U Methamphetamines Scrn Negative (MBZJJJ=860) U Benzodiazepines Scrn Negative (UXHIRR=396) U Cocaine Metab Screen Negative (JKQQGU=108) U Marijuana (THC) Screen Presumptive positive H (CUTOFF=50) Ethyl Alcohol 0.00 (0.00) gm% Result Diagrams: 04/08/18 06:25 04/08/18 06:25 EKG INTERPRETATION EKG Date: 04/07/18 Time: 01:22 Rhythm: A-Fib Rate (Beats/Min): 149 [place]: RAD-Right [place] Deviation QRS: Normal ST-T: Normal QT: Normal Comparison: NA - No Prior EKG Problem List Initiated/Reviewed/Updated: Yes Orders Last 24hrs: Active Orders 24 hr Category Date Time Status Patient Status [ADT] Routine ADT 04/07/18 06:43 Active Cardiac Monitoring [RC] CONTINUOUS Care 04/07/18 07:29 Ordered EKG Documentation Completion [RC] ASDIRECTED Care 04/07/18 04:00 Active EKG Documentation Completion [RC] STAT Care 04/07/18 01:05 Active Height and Weight [RC] DAILY Care 04/07/18 07:28 Ordered Intake and Output [RC] QSHIFT Care 04/07/18 07:29 Ordered Oxygen Therapy [RC] PRN Care 04/07/18 07:29 Ordered Peripheral IV Care [RC] . DIRECTED Care 04/07/18 03:06 Active RT Aerosol Therapy [RC] ASDIRECTED Care 04/07/18 07:31 Ordered Up With Assistance [RC] ASDIRECTED Care 04/07/18 07:28 Ordered Up ad Elena [RC] ASDIRECTED Care 04/07/18 07:28 Ordered VTE/DVT Education [RC] PER UNIT ROUTINE Care 04/07/18 07:29 Ordered Vital Signs [RC] Q4H Care 04/07/18 07:29 Ordered Consult for Substance Abuse [CONS] Routine Cons 04/07/18 07:32 Ordered Consult to Case Management/Retail Merchandising Manager [CONS] Cons 04/07/18 07:28 Ordered Routine Consult to Spiritual Care [CONS] Routine Cons 04/07/18 07:28 Ordered Regular Diet [DIET] Diet 04/07/18 Breakfast Ordered BASIC METABOLIC PANEL,BMP [CHEM] AM Lab 04/08/18 05:11 Ordered BASIC METABOLIC PANEL,BMP [CHEM] AM Lab 04/09/18 05:11 Ordered BASIC METABOLIC PANEL,BMP [CHEM] AM Lab 04/10/18 05:11 Ordered CBC WITH AUTO DIFF [HEME] AM Lab 04/08/18 05:11 Ordered CBC WITH AUTO DIFF [HEME] AM Lab 04/09/18 05:11 Ordered CBC WITH AUTO DIFF [HEME] AM Lab 04/10/18 05:11 Ordered MAGNESIUM [CHEM] AM Lab 04/08/18 05:11 Ordered MAGNESIUM [CHEM] AM Lab 04/09/18 05:11 Ordered MAGNESIUM [CHEM] AM Lab 04/10/18 05:11 Ordered T4 FREE [CHEM] Routine Lab 04/07/18 07:27 Ordered TSH [CHEM] Routine Lab 04/07/18 07:27 Ordered Albuterol/Ipratropium [DuoNeb 3.0-0.5 MG/3 ML] Med 04/07/18 07:28 Ordered 3 ml NEB Q4H PRN Bisacodyl [Dulcolax] Med 04/07/18 07:28 Ordered 5 mg PO DAILY PRN Diltiazem 125 mg Med 04/07/18 03:15 Active Sodium Chloride 0.9% [Normal Saline] 100 ml IV TITRATE Docusate Sodium [Colace] Med 04/07/18 07:28 Ordered 100 mg PO BID PRN Docusate Sodium/Sennosides [Senna Plus] Med 04/07/18 07:28 Ordered 1 tab PO BID PRN HYDROmorphone [Dilaudid] Med 04/07/18 07:28 Ordered 0.5 mg IVPUSH Q2H PRN Ibuprofen [Motrin] Med 04/07/18 07:28 Ordered 600 mg PO Q6H PRN Ketorolac [Toradol] Med 04/07/18 07:28 Ordered 60 mg IM Q6H PRN LORazepam [Ativan] Med 04/07/18 07:28 Ordered 1 mg IV Q6H PRN LORazepam [Ativan] Med 04/07/18 07:28 Ordered 2 mg IVPUSH Q4H PRN Metoprolol Tartrate [Lopressor] Med 04/07/18 07:28 Ordered 5 mg IVPUSH Q4H PRN Nicotine [Habitrol] Med 04/07/18 07:28 Ordered 21 mg TRDERM DAILY PRN Ondansetron [Zofran] Med 04/07/18 07:28 Ordered 4 mg IV Q6H PRN Pharmacy to Dose - Magnesium R [Pharmacy to Dose - Med 04/07/18 07:30 Ordered Magnesium Replacement] 1 dose .XX ASDIRECTED Pharmacy to Dose - Potassium R [Pharmacy to Dose - Med 04/07/18 07:30 Ordered Potassium Replacement] 1 dose .XX ASDIRECTED Polyethylene Glycol 3350 [MiraLAX] Med 04/07/18 07:28 Ordered 17 gm PO DAILY PRN Promethazine [Phenergan] 12.5 mg Med 04/07/18 07:28 Ordered Sodium Chloride 0.9% [Normal Saline] 50 ml IV Q6H Remove Patch Med 04/08/18 09:00 Active 1 ea TRDERM DAILY Sodium Chloride 0.9% @ 125 MLS/HR (1000ml) Med 04/07/18 07:30 Ordered Sodium Chloride 0.9% [Normal Saline] 1,000 ml IV ASDIRECTED Sodium Chloride 0.9% [Saline Flush] Med 04/07/18 03:06 Active 10 ml FLUSH ASDIRECTED PRN hydrALAZINE [Apresoline] Med 04/07/18 07:28 Ordered 20 mg IVPUSH Q4H PRN Peripheral IV Insertion Adult [OM.PC] Routine Oth 04/07/18 03:06 Ordered Sequential Compression Device [OM.PC] Per Unit Routine Oth 04/07/18 07:29 Ordered Resuscitation Status Routine Resus Stat 04/07/18 07:28 Ordered EKG 12 Lead [EK] Stat Ther 04/07/18 03:59 Ordered Medication Orders Hydralazine HCl (Apresoline) 20 mg IVPUSH Q4H PRN PRN Reason: Hypertension Diltiazem HCl 125 mg/ Sodium (Chloride) 125 mls @ 10 mls/hr IV TITRATE CORDE[facility]; Protocol Last Admin: 04/07/18 03:31 Dose: 10 mg/hr, 10 mls/hr Lorazepam (Ativan) 2 mg IVPUSH Q4H PRN PRN Reason: Seizures Magnesium Sulfate (Pharmacy To Dose - Magnesium Replacement) 1 dose .XX ASDIRECTED [facility] Metoprolol Tartrate (Lopressor) 5 mg IVPUSH Q4H PRN PRN Reason: Tachycardia Miscellaneous Information (Remove Patch) 1 ea TRDERM DAILY [facility] Nicotine (Habitrol) 21 mg TRDERM DAILY PRN PRN Reason: Nicotine Dependence Potassium Chloride (Pharmacy To Dose - Potassium Replacement) 1 dose .XX ASDIRECTED [facility] Sodium Chloride (Saline Flush) 10 ml FLUSH ASDIRECTED PRN PRN Reason: Keep Vein Open Last Admin: 04/07/18 03:16 Dose: 10 ml Assessment/Plan Comment:: Assessment/Plan: Acute: Atrial Fibrillation w/ RVR - HR int he 140s - 2/2 Methamphetamine use (stimulant) - Current on cardizem drip; he may need beta blocked to minimize adrenergic tone - 2D echo in AM - Thyroid Panel to r/o hyperthyroidism - Titrate to come off drip and will start low dose BB Substance Abuse - Acute on Chronic - He has an underlying depression on zoloft for maintenance medications - Carries a hx/o polysubstance abuse however he has been using primarily marijuana and meth - 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; he last intake was yesterday - He has been to chemical dependency treatment at least twice: 2011 in [place] and 2014 in [place] - Treatment is primarily supportive - He is amenable to go for inpatient rehab - Consult SA/Tele psych Probable Seizure w/ Collapsed - 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 (Marijuana and Methamphetamines) - It appears he may have post ictal state however he was alert/awake and oriented with me in the unit - 2D echo in AM - PRN Ativan for abortive seizure - Continue to monitor Depression - Not suicidal or homocidal - He takes zoloft for maintenance - Has a GF with a 4 years child - He is currently unemployed - Tele-psych consult Nicotine Dependence - Smokes 2pp since 12 years old - Counseled on Smoking Cessation - Nicotine path daily Plan: Admit to ICU Continue rate control agent Hold Zoloft due to hyperstimulation (will avoid Serotonin Syndrome) PRN Ativan for abortive seizure Routine AM Labs Seizure Precautions SA/Tele-psych consult SW/CM for d/c planning He is amenable to fo for chemical dependency treatment Met and updated GF at beside and discussed diagnoses and treatment plan for him
[2018-04-07] MEDS ORDERED: traMADol 50 MG Tab PO PRN (07:34)
[2018-04-07] MEDS ORDERED: Ketorolac 30 MG/ML SDV IM PRN (07:55)
[2018-04-07] MEDS: Metoprolol Tartrate 25 MG Tab PO SCH ×2 (09:15→21:41)
[2018-04-07] MEDS: Nicotine 21 MG/24 Hr Patch TRDERM PRN (09:17)
[2018-04-07] MEDS: Famotidine 20 MG Tab PO SCH ×2 (09:17→21:41)
[2018-04-07] MEDS: Sodium Chloride 0.9% 1,000 ML IV SCH ×2 (09:20→17:21)
[2018-04-07] MEDS: Ibuprofen 600 MG Tab PO PRN (10:31)
[2018-04-07] MEDS ORDERED: Ketorolac 30 MG/ML SDV IVPUSH PRN (10:34)
[2018-04-07] MEDS ORDERED: Enoxaparin 40 MG/0.4 ML Syringe SUBCUT SCH (11:45)
[2018-04-07] MEDS ORDERED: predniSONE 20 MG Tab PO ONE (12:04)
--- NOTE | 2018-04-07 12:36 | PCM.SN ---
- Free Text/Narrative Note: Patient has abnormal thyroid panel with depleted TSH level and considerably high level of FT4 of 2.31. 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 Will order Methemazole (faster to reach euthyroid state than PTU and non life threatening) , Cholestyramine to excrete thyroid enzyme and Steroids to prevent conversion of T4 to T3 pending work up. Not sure if we carry Lugol's solution. He is now on BB if he gets shortness of breath, will switch back to CCB. Thyroid U/S in AM.
[2018-04-07] MEDS: Methimazole 5 MG Tab PO SCH ×2 (12:47→21:39)
[2018-04-07] MEDS: Enoxaparin 40 MG/0.4 ML Syringe SUBCUT SCH (12:49)
[2018-04-07] MEDS: Cholestyramine/Sucrose Powder 4 GM Packet PO SCH (21:39)
[2018-04-07] MEDS: QUEtiapine 25 MG Tab PO SCH (21:40)
[2018-04-07] MEDS: Hydrocortisone Sodium Succinate 100 MG/2 ML SDV IVPUSH SCH (21:42)
[2018-04-08] MEDS: Sodium Chloride 0.9% 1,000 ML IV SCH ×3 (02:01→19:41)
[2018-04-08] MEDS: Hydrocortisone Sodium Succinate 100 MG/2 ML SDV IVPUSH SCH ×3 (05:38→21:28)
[2018-04-08] MEDS: Methimazole 5 MG Tab PO SCH ×3 (05:38→21:36)
[2018-04-08] MEDS: Ibuprofen 600 MG Tab PO PRN (06:38)
[2018-04-08] MEDS ORDERED: predniSONE 20 MG Tab PO SCH (07:00)
[2018-04-08] MEDS: Nicotine 21 MG/24 Hr Patch TRDERM PRN (08:19)
[2018-04-08] MEDS: Cholestyramine/Sucrose Powder 4 GM Packet PO SCH ×2 (08:20→21:25)
[2018-04-08] MEDS: Metoprolol Tartrate 25 MG Tab PO SCH ×2 (08:20→21:27)
[2018-04-08] MEDS: Famotidine 20 MG Tab PO SCH ×2 (08:20→21:27)
--- NOTE | 2018-04-08 08:23 | US ---
Thyroid ultrasound: Multiple real-time images of the thyroid gland were obtained. Comparison: No previous thyroid imaging. Abnormal echo pattern is seen throughout the left lobe of the thyroid gland. Questionable isoechoic nodule measuring 1.5 cm is noted within the left lobe. Calcifications are seen within the left lobe of the thyroid gland. Right lobe of the thyroid gland appears within normal limits. Impression: 1. 1.5 cm possible nodule within the left lobe. Calcifications within the left lobe. Recommend repeat thyroid ultrasound in 6 months to confirm stability of the nodule. Diagnostic code #3
--- NOTE | 2018-04-08 08:30 | PCM.PN ---
- General Info Date of Service: 04/08/18 Admission Dx/Problem (Free Text): Admission Diagnosis/Problem Admission Diagnosis/Problem Atrial fibrillation Subjective Update: Follow up Functional Status: Reports: Pain Controlled, Tolerating Diet, Ambulating, Urinating. Denies: New Symptoms - Review of Systems General: Denies: Fever, Chills HEENT: Reports: Other (toothache) Pulmonary: Denies: Shortness of Breath, Cough, Sputum Cardiovascular: Denies: Chest Pain, Palpitations, Dyspnea on Exertion, Edema, Lightheadedness Gastrointestinal: Denies: Abdominal Pain, Decreased Appetite, Nausea, Vomiting Genitourinary: Reports: No Symptoms Musculoskeletal: Denies: Neck Pain Skin: Denies: Cyanosis, Mottled, Pallor, Diaphoresis, Bruising, Rash Neurological: Reports: Tremors. Denies: Confusion, Seizure, Weakness, Gait Disturbance Psychiatric: Reports: Anxiety. Denies: Depression, Mood Lability, Agitation, Hallucinations, Suicidal Ideation Systems Review Comment:: He did not have a good night. He was anxious, jittery and shaky early this AM due tooth ache localized to his left upper jaw. His heart rate is controlled and he is now in sinus rhythm. He has no trouble with eating or drinking. - Patient Data Vitals - Most Recent: Last Vital Signs Temp 37.0 C 04/08/18 07:59 Pulse 106 H 04/08/18 08:20 Resp 16 04/08/18 07:59 BP 135/82 04/08/18 08:20 Pulse Ox 98 04/08/18 07:59 Weight - Most Recent: 67.857 kg I&O - Last 24 Hours: Intake & Output 04/07/18 04/08/18 04/08/18 22:59 06:59 14:59 Intake Total 420 2121 Balance 420 2121 Lab Results Last 24 Hours: Laboratory Results - last 24 hr 04/07/18 04/08/18 04/08/18 Range/Units 01:06 06:25 06:25 WBC 10.37 H (4.23-9.07) K/mm3 RBC 5.48 (4.63-6.08) M/mm3 Hgb 15.5 (13.7-17.5) gm/L Hct 45.8 (40.1-51.0) % MCV 83.6 (79.0-92.2) fl MCH 28.3 (25.7-32.2) pg MCHC 33.8 (32.2-35.5) g/dl RDW Std Deviation 39.8 (35.1-43.9) fL Plt Count 232 (163-337) K/mm3 MPV 10.3 (9.4-12.3) fl Neut % (Auto) 67.7 (34.0-67.9) % Lymph % (Auto) 23.9 (21.8-53.1) % Harper % (Auto) 7.6 (5.3-12.2) % Eos % (Auto) 0.5 L (0.8-7.0) Baso % (Auto) 0.2 (0.1-1.2) % Neut # (Auto) 7.02 H (1.78-5.38) K/mm3 Lymph # (Auto) 2.48 (1.32-3.57) K/mm3 Harper # (Auto) 0.79 (0.30-0.82) K/mm3 Eos # (Auto) 0.05 (0.04-0.54) K/mm3 Baso # (Auto) 0.02 (0.01-0.08) K/mm3 Sodium 140 (136-145) mEq/L Potassium 4.0 (3.5-5.1) mEq/L Chloride 106 (98-107) mEq/L Carbon Dioxide 27 (21-32) mEq/L Anion Gap 11.0 (5-15) BUN 9 (7-18) mg/dL Creatinine 0.7 (0.7-1.3) mg/dL Est Cr Clr Drug Dosing 154.83 mL/min Estimated GFR (MDRD) > 60 (>60) mL/min BUN/Creatinine Ratio 12.9 L (14-18) Glucose 123 H (74-106) mg/dL Calcium 8.5 (8.5-10.1) mg/dL Magnesium 1.8 (1.8-2.4) mg/dl Free T4 2.31 H (0.76-1.46) ng/dL TSH 3rd Generation < 0.007 L (0.358-3.74) uIU/mL Med Orders - Current: Current Medications Albuterol/Ipratropium (Duoneb 3.0-0.5 Mg/3 Ml) 3 ml NEB Q4H PRN PRN Reason: Shortness Of Breath/wheezing Bisacodyl (Dulcolax) 5 mg PO DAILY PRN PRN Reason: Constipation Cholestyramine Resin (Cholestyramine Packet) 4 gm PO BID [facility] Stop: 04/09/18 09:01 Last Admin: 04/08/18 08:20 Dose: 4 gm Docusate Sodium (Colace) 100 mg PO BID PRN PRN Reason: Constipation Enoxaparin Sodium (Lovenox) 40 mg SUBCUT Q24H [facility] Last Admin: 04/07/18 12:49 Dose: 40 mg Famotidine (Pepcid) 20 mg PO BID [facility] Stop: 04/08/18 21:01 Last Admin: 04/08/18 08:20 Dose: 20 mg Hydralazine HCl (Apresoline) 20 mg IVPUSH Q4H PRN PRN Reason: Hypertension Hydrocortisone Sodium Succinate (Solu-Cortef) 100 mg IVPUSH Q8H [facility] Last Admin: 04/08/18 05:38 Dose: 100 mg Hydromorphone HCl (Dilaudid) 0.5 mg IVPUSH Q2H PRN PRN Reason: Pain (severe 7-10) Diltiazem HCl 125 mg/ Sodium (Chloride) 125 mls @ 10 mls/hr IV TITRATE [facility]; Protocol Last Titration: 04/07/18 09:10 Dose: 0 mg/hr, 0 mls/hr Promethazine HCl 12.5 mg/ (Sodium Chloride) 50.5 mls @ 100 mls/hr IV Q6H PRN PRN Reason: Nausea/Vomiting Sodium Chloride (Normal Saline) 1,000 mls @ 125 mls/hr IV ASDIRECTED [facility] Last Admin: 04/08/18 02:01 Dose: 125 mls/hr Ibuprofen (Motrin) 600 mg PO Q6H PRN PRN Reason: Pain (moderate 4-6) Last Admin: 04/08/18 06:38 Dose: 600 mg Ketorolac Tromethamine (Toradol) 30 mg IVPUSH Q6H PRN PRN Reason: Pain (moderate 4-6) Lorazepam (Ativan) 2 mg IVPUSH Q4H PRN PRN Reason: Seizures Lorazepam (Ativan) 1 mg IV Q6H PRN PRN Reason: Anxiety Magnesium Sulfate (Pharmacy To Dose - Magnesium Replacement) 0 dose .XX ASDIRECTED PRN PRN Reason: RX TO WATCH MAG Methimazole (Methimazole) 10 mg PO Q8H [facility] Last Admin: 04/08/18 05:38 Dose: 10 mg Metoprolol Tartrate (Lopressor) 5 mg IVPUSH Q4H PRN PRN Reason: Tachycardia Metoprolol Tartrate (Lopressor) 25 mg PO Q12H [facility] Last Admin: 04/08/18 08:20 Dose: 25 mg Miscellaneous Information (Remove Patch) 1 ea TRDERM DAILY [facility] Nicotine (Habitrol) 21 mg TRDERM DAILY PRN PRN Reason: Nicotine Dependence Last Admin: 04/08/18 08:19 Dose: 21 mg Ondansetron HCl (Zofran) 4 mg IV Q6H PRN PRN Reason: Nausea/Vomiting Polyethylene Glycol (Miralax) 17 gm PO DAILY PRN PRN Reason: Constipation Potassium Chloride (Pharmacy To Dose - Potassium Replacement) 0 dose .XX ASDIRECTED PRN PRN Reason: RX TO WATCH K Quetiapine Fumarate (Seroquel) 50 mg PO BEDTIME [facility] Last Admin: 04/07/18 21:40 Dose: 50 mg Senna/Docusate Sodium (Senna Plus) 1 tab PO BID PRN PRN Reason: Constipation Sodium Chloride (Saline Flush) 10 ml FLUSH ASDIRECTED PRN PRN Reason: Keep Vein Open Last Admin: 04/07/18 03:16 Dose: 10 ml Tramadol HCl (Ultram) 100 mg PO Q6H PRN PRN Reason: Pain (moderate 4-6) Last Admin: 04/08/18 08:19 Dose: 100 mg Discontinued Medications Aspirin (Aspirin) 324 mg PO ONETIME ONE Stop: 04/07/18 05:47 Last Admin: 04/07/18 05:56 Dose: 324 mg Diltiazem HCl (Cardizem) 60 mg PO ONETIME ONE Stop: 04/07/18 02:22 Last Admin: 04/07/18 02:24 Dose: 60 mg Diltiazem HCl (Cardizem) 10 mg IVPUSH ONETIME ONE Stop: 04/07/18 03:07 Last Admin: 04/07/18 03:16 Dose: 10 mg Enoxaparin Sodium (Lovenox) 40 mg SUBCUT Q24H [facility] Last Admin: 04/07/18 12:02 Dose: Not Given Sodium Chloride (Normal Saline) 1,000 mls @ 1,000 mls/hr IV ONETIME ONE Stop: 04/07/18 04:05 Last Admin: 04/07/18 03:16 Dose: 1,000 mls/hr Ketorolac Tromethamine (Toradol) 60 mg IM Q6H PRN PRN Reason: Pain (moderate 4-6) Ketorolac Tromethamine (Toradol) 30 mg IM Q6H PRN PRN Reason: Pain (moderate 4-6) Lorazepam (Ativan) 0.5 mg PO ONETIME ONE Stop: 04/07/18 02:21 Last Admin: 04/07/18 02:24 Dose: 0.5 mg Prednisone (Prednisone) 60 mg PO ONETIME ONE Stop: 04/07/18 12:05 Last Admin: 04/07/18 12:47 Dose: 60 mg Prednisone (Prednisone) 40 mg PO WITHBREAKFAST [facility] Stop: 04/11/18 07:01 Propylthiouracil (Propylthiouracil) 200 mg PO Q6H [facility] Last Admin: 04/07/18 12:53 Dose: Not Given - Exam General: Alert, Oriented, Cooperative, No Acute Distress, Mild Distress HEENT: Pupils Equal, Pupils Reactive, EOMI, Mucous Membr. Moist/Slaughter, Other ( evidence of "meth mouth") Neck: Supple Lungs: Clear to Auscultation, Normal Respiratory Effort Cardiovascular: Regular Rhythm, Tachycardia GI/Abdominal Exam: Normal Bowel Sounds, Soft, Non-Tender, No Organomegaly, No Distention, No Abnormal Bruit, No Mass (Male) Exam: Deferred Back Exam: Normal Inspection, Full Range of Motion Extremities: Normal Inspection, Normal Range of Motion, Non-Tender, No Pedal Edema, Normal Capillary Refill, Other (needle maxwell on both arms) Peripheral Pulses: 3+: Posterior Tibial (L), Posterior Tibial (R), Dorsalis Pedis (L), Dorsalis Pedis (R) Skin: Warm, Dry, Intact, Other (tattoos noted) Neurological: No New Focal Deficit Psy/Mental Status: Alert, Normal Affect, Normal Mood, Anxious. No: Depressed, Agitated, Suicidal Ideation, Homicidal Ideation, Hallucinations, Withdrawal Symptoms Physical Findings Comments:: No obvious signs of withdrawal - Problem List Review Problem List Initiated/Reviewed/Updated: Yes - My Orders Last 24 Hours: My Active Orders 04/07/18 07:31 RT Aerosol Therapy [RC] ASDIRECTED 04/07/18 07:32 Consult for Substance Abuse [CONS] Routine 04/07/18 07:33 Consult to Physician [CONS] Routine 04/07/18 07:34 Notify Provider Consults [RC] ASDIRECTED traMADol [Ultram] 100 mg PO Q6H PRN 04/07/18 09:00 Famotidine [Pepcid] 20 mg PO BID Metoprolol Tartrate [Lopressor] 25 mg PO Q12H 04/07/18 10:34 Ketorolac [Toradol] 30 mg IVPUSH Q6H PRN 04/07/18 12:00 Enoxaparin [Lovenox] 40 mg SUBCUT Q24H 04/07/18 13:00 methIMAzole 10 mg PO Q8H 04/07/18 21:00 Cholestyramine/Sucrose [Cholestyramine Packet] 4 gm PO BID QUEtiapine [SEROquel] 50 mg PO BEDTIME 04/07/18 21:30 Hydrocortisone Sod Succinate [Solu-CORTEF] 100 mg IVPUSH Q8H 04/08/18 06:25 T3 UPTAKE [REF] Routine THYROGLOB AB [REF] Routine THYROID PEROXIDASE (TPO) AB [REF] Routine THYROID STIM IMMUNOGLOBULIN [REF] Routine THYROTROPIN RECEPTOR AB [REF] Routine THYROXINE BINDING GLOBULIN [REF] Routine 04/08/18 09:00 Remove Patch 1 ea TRDERM DAILY 04/09/18 05:11 BASIC METABOLIC PANEL,BMP [CHEM] AM CBC WITH AUTO DIFF [HEME] AM MAGNESIUM [CHEM] AM 04/09/18 07:00 Echo Comp wo Cont [US] 0700 04/10/18 05:11 BASIC METABOLIC PANEL,BMP [CHEM] AM CBC WITH AUTO DIFF [HEME] AM MAGNESIUM [CHEM] AM - Plan Plan:: Assessment/Plan: Acute: Thyroid Toxicosis/Overt Hyperthyroidism - FT4 is 2.31; TSH is essentially 0 - He is on Methimazole, Steroid and Cholestyramine - BB for adrenergic tone - Ordered hyperthyroid enzymes - Pending thyroid ultrasound today Substance Abuse - Acute on Chronic - He has an underlying depression on zoloft for maintenance medications - Carries a hx/o polysubstance abuse however he has been using primarily marijuana and meth - 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; he last intake was yesterday - He has been to chemical dependency treatment at least twice: 2012 in [place] and 2014 in [place] - Treatment is primarily supportive - He is amenable to go for rehab - Consult SA/Tele psych Depression - Not suicidal or homocidal - He takes zoloft for maintenance; for Dr. Bradley to resume - Has a GF with a 4 years child - He is currently unemployed - Tele-psych consult Nicotine Dependence - Smokes 2pp since 12 years old - Counseled on Smoking Cessation - Nicotine path daily Toothache - He has significant cavities w/ evidence of "meth mouth" - We have no oral surgeon or dentist for consultation - PRN pain medication and proper oral hygiene Resolved: S/p Atrial Fibrillation w/ RVR - HR int he 140s; now in sinus rhythm - 2/2 Methamphetamine use (stimulant) and Thyroid Toxicosis/Overt Hypothyroidism - Current on cardizem drip; he may need beta blocked - 2D echo in AM - Thyroid Panel - Titrate to come off drip and will start low dose BB S/p Probable Seizure w/ Collapsed - Likely 2/2 MEDIA ASSISTANT overstimulation with illicit drugs (Marijuana and Methamphetamines) - It appears he may have post ictal state however he was alert/awake and oriented with me in the unit - 2D echo in AM - PRN Ativan for abortive seizure - Continue to monitor Plan: He is clinically much better Continue rate control agent PRN Ativan for abortive seizure Seroquel for sleep initiation/anxiety at night Routine AM Labs Seizure Precautions Awaiting SA/Tele-psych consult SW/CM for d/c planning He is still amenable to go for chemical dependency treatment Met up parents at beside and updated them about patient's diagnoses, test results and treatment plan.
[2018-04-08] MEDS: LORazepam 2 MG/ML SDV IV PRN (08:38)
[2018-04-08] MEDS ORDERED: QUEtiapine 25 MG Tab PO SCH (09:00)
[2018-04-08] MEDS ORDERED: Acetaminophen/HYDROcodone 325-5 MG Tab PO PRN (09:39)
[2018-04-08] MEDS: Enoxaparin 40 MG/0.4 ML Syringe SUBCUT SCH (12:41)
[2018-04-08] MEDS: Sertraline 50 MG Tab PO SCH (13:17)
--- NOTE | 2018-04-08 19:19 | CONS ---
CONSULTING PHYSICIAN: Remigio Bradley MD DATE OF CONSULTATION: 04/08/2018 PSYCHIATRIC EVALUATION This is a 60-minute inpatient telemedicine event. Site where services are provided are [facility] in [place], [place]. Site where services are provided from offices in [facility]. Length of time for this 60-minute inpatient telemedicine event is 60 minutes. IDENTIFICATION: The patient is a 23-year-old male who is admitted to the [facility] in [place], [place] on 04/07/2018. He is seen for psychiatric evaluation. CHIEF COMPLAINT: "I have been using methamphetamine... I guess I OD'd." HISTORY OF PRESENT ILLNESS: The patient is a 23-year-old male who reports that he has been struggling with very heavy meth use and "daily marijuana" use. He states he was brought to the emergency room by police after they arrested him outside of his apartment where he and a friend had been using, and the police were concerned that the patient had overdosed on meth. The patient states he has essentially had a history of "daily meth use for the past 11 years," although he does note that he had 2-1/2 years of sobriety "until I just relapsed recently." The patient states that he has "been depressed," so he notes it is mostly situational. He states in regard to his meth and marijuana use, "I definitely think I have a problem" since he would be open to getting treatment if possible. He has had treatment before and he has had some sustained sobriety. He also reports so far as his depression is concerned that he was on Zoloft in the past, although he has not been taking it lately. He states that the medication "did help," and he states not only did it help for depression, but it reduced his anger because "a lot of times I have just been angry when I wake up and I didn't have that when I was taking the Zoloft." The patient will be open to trying the Zoloft again while he is in the hospital to see if that would help him get better going forward. MEDICATIONS: At the time of admission, none. ALLERGIES: No known drug allergies. PAST MEDICAL HISTORY: 1. Atrial fibrillation. 2. Hyperthyroidism just diagnosed since admission per patient report. REVIEW OF SYSTEMS: Aside from cardiovascular and endocrine, all other major organ systems are negative at this point in time for acute difficulties or complications. FAMILY PSYCHIATRIC AND CD HISTORY: The patient denies. PAST PSYCHIATRIC AND CD HISTORY: The patient denies any previous psychiatric hospitalizations. He reports 2 chemical dependency treatments in the past for meth and marijuana use. He states his longest sobriety was 2-1/2 years and he just recently relapsed from this period of sobriety. He denies any previous suicide attempts, self- injurious behaviors, or eating disorder history. He does report being diagnosed with depression in the past. PAST PSYCHIATRIC MEDICATION HISTORY: Includes Zoloft. SOCIAL HISTORY: The patient is born and raised in [place], [place]. He is the oldest of 2 siblings and 1 younger brother. The patient's parents were throughout childhood and adolescence. The patient's highest level of education is the 11th grade. He is currently working on a GED. He has never been , but been in a current relationship for the past 3 years. He has no biological children. He lives in [place] with his parents and then spends time in [facility], and he works various jobs, although he notes he has been unemployed for the past few months. He denies any prior service. He states he is currently on probation and facing some additional charges from his arrest the other night. He is agnostic in terms of his tita formation. He enjoys playing video games and bowling in his spare time. MENTAL STATUS EXAM: The patient is a 23-year-old white male, in no apparent distress. Speech is of regular rate and rhythm. The patient is cognitively oriented x3. Psychomotor activity is within normal limits. There are no abnormal motor movements or tics observed. Gait and station are not observed as the patient is seated on the side of the bed for the purposes of the telemedicine consult. There is no behavioral or stated evidence of acute suicidal or homicidal ideation or acute psychotic, delusional, or paranoid symptoms. Thought processes are organized. There are no manic symptoms or loose associations evident. Judgment and insight appear unimpaired at this point in time. Motivation for help appears good. VITAL SIGNS: Stable at the time of presentation. IMPRESSION: Kismet I: 1. Major depressive disorder, F32.2. 2. Anxiety disorder, not otherwise specified, F41.9. 3. Methamphetamine dependence. 4. Cannabis dependence. Kismet II: None. Kismet III: 1. Atrial fibrillation. 2. Hyperthyroidism. Kismet IV: Severe. Kismet V: 60. PLAN: 1. Again, I am going to restart Zoloft 50 mg q.a.m. to help with mood. 2. Continue Seroquel, but change the dosing time from 25 mg b.i.d. to 50 mg at bedtime for clarity of thought, mood stability, anxiety reduction, sleep initiation and maintenance while the patient is on the unit. 3. May continue Ativan 1 mg q.6 hours p.r.n. acute anxiety or agitation while the patient remains on the unit as ordered by the patient's primary inpatient medical treatment team. 4. Sobriety. 5. CD evaluation. 6. AA rep to visit the patient while on the unit. 7. Pastoral guidance. 8. Recommend the patient be transferred to CD treatment either on an inpatient or outpatient basis when medically stabilized. 9. We will continue to follow up with the patient on an as-needed basis while he remains on the inpatient MICU. 10.We will follow up with the patient sooner if any complications in the interim. 11.Crisis plan is in place. [facility] /[id number]
[2018-04-08] MEDS: QUEtiapine 25 MG Tab PO SCH (23:24)
[2018-04-09] MEDS: Sodium Chloride 0.9% 1,000 ML IV SCH (03:40)
[2018-04-09] MEDS: Hydrocortisone Sodium Succinate 100 MG/2 ML SDV IVPUSH SCH ×3 (05:18→20:49)
[2018-04-09] MEDS: Methimazole 5 MG Tab PO SCH ×3 (05:19→20:14)
[2018-04-09] MEDS: Ibuprofen 600 MG Tab PO PRN (05:36)
--- NOTE | 2018-04-09 07:46 | PCM.PN ---
- General Info Date of Service: 04/09/18 Admission Dx/Problem (Free Text): Admission Diagnosis/Problem Admission Diagnosis/Problem Atrial fibrillation Subjective Update: Follow up Functional Status: Reports: Pain Controlled, Tolerating Diet, Ambulating, Urinating. Denies: New Symptoms - Review of Systems General: Reports: Other (tired). Denies: Fever, Weakness, Fatigue, Malaise, Chills HEENT: Reports: Other (no toothache). Denies: Headaches Pulmonary: Denies: Shortness of Breath, Wheezing Cardiovascular: Denies: Chest Pain, Palpitations, Dyspnea on Exertion, Edema, Lightheadedness Gastrointestinal: Denies: Abdominal Pain, Decreased Appetite, Diarrhea, Nausea, Vomiting Genitourinary: Reports: Incontinence Musculoskeletal: Reports: No Symptoms Skin: Reports: No Symptoms Neurological: Denies: Confusion, Headache, Difficulty Walking, Weakness, Gait Disturbance Psychiatric: Denies: Confusion, Depression, Mood Lability, Anxiety, Agitation, Cravings, Hallucinations, Suicidal Ideation Systems Review Comment:: No significant overnight or acute issues. However he had a considerably high blood pressure this AM. He improved immediately after receiving a one time dose of PRN IVP Hydralazine. He developed a mild headache after that but since then he has no complaints except feeling tired. His Mg is slightly low at 1.6 this AM. - Patient Data Vitals - Most Recent: Last Vital Signs Temp 36.9 C 04/08/18 20:00 Pulse 104 H 04/08/18 21:27 Resp 16 04/09/18 04:44 BP 156/108 H 04/09/18 04:44 Pulse Ox 100 04/09/18 04:44 Weight - Most Recent: 68.946 kg I&O - Last 24 Hours: Intake & Output 04/08/18 04/09/18 04/09/18 22:59 06:59 14:59 Intake Total 1853 2185 Balance 1887 2185 Lab Results Last 24 Hours: Laboratory Results - last 24 hr 04/09/18 Range/Units 05:25 WBC 9.58 H (4.23-9.07) K/mm3 RBC 5.17 (4.63-6.08) M/mm3 Hgb 14.7 (13.7-17.5) gm/L Hct 42.9 (40.1-51.0) % MCV 83.0 (79.0-92.2) fl MCH 28.4 (25.7-32.2) pg MCHC 34.3 (32.2-35.5) g/dl RDW Std Deviation 38.1 (35.1-43.9) fL Plt Count 246 (163-337) K/mm3 MPV 10.5 (9.4-12.3) fl Neut % (Auto) 77.5 H (34.0-67.9) % Lymph % (Auto) 16.9 L (21.8-53.1) % [place] % (Auto) 5.3 (5.3-12.2) % Eos % (Auto) 0.1 L (0.8-7.0) Baso % (Auto) 0.1 (0.1-1.2) % Neut # (Auto) 7.42 H (1.78-5.38) K/mm3 Lymph # (Auto) 1.62 (1.32-3.57) K/mm3 [place] # (Auto) 0.51 (0.30-0.82) K/mm3 Eos # (Auto) 0.01 L (0.04-0.54) K/mm3 Baso # (Auto) 0.01 (0.01-0.08) K/mm3 Med Orders - Current: Current Medications Hydrocodone Bitart/Acetaminophen ([place] 325-5 Mg) 1 tab PO Q4H PRN PRN Reason: Pain Albuterol/Ipratropium (Duoneb 3.0-0.5 Mg/3 Ml) 3 ml NEB Q4H PRN PRN Reason: Shortness Of Breath/wheezing Bisacodyl (Dulcolax) 5 mg PO DAILY PRN PRN Reason: Constipation Cholestyramine Resin (Cholestyramine Packet) 4 gm PO BID [facility] Stop: 04/09/18 09:01 Last Admin: 04/08/18 21:25 Dose: 4 gm Docusate Sodium (Colace) 100 mg PO BID PRN PRN Reason: Constipation Enoxaparin Sodium (Lovenox) 40 mg SUBCUT Q24H [facility] Last Admin: 04/08/18 12:41 Dose: 40 mg Hydralazine HCl (Apresoline) 20 mg IVPUSH Q4H PRN PRN Reason: Hypertension Last Admin: 04/09/18 04:47 Dose: 20 mg Hydrocortisone Sodium Succinate (Solu-Cortef) 100 mg IVPUSH Q8H [facility] Last Admin: 04/09/18 05:18 Dose: 100 mg Hydromorphone HCl (Dilaudid) 0.5 mg IVPUSH Q2H PRN PRN Reason: Pain (severe 7-10) Diltiazem HCl 125 mg/ Sodium (Chloride) 125 mls @ 10 mls/hr IV TITRATE CORDELL; Protocol Last Titration: 04/07/18 09:10 Dose: 0 mg/hr, 0 mls/hr Promethazine HCl 12.5 mg/ (Sodium Chloride) 50.5 mls @ 100 mls/hr IV Q6H PRN PRN Reason: Nausea/Vomiting Sodium Chloride (Normal Saline) 1,000 mls @ 125 mls/hr IV ASDIRECTED [facility] Last Admin: 04/09/18 03:40 Dose: 125 mls/hr Ibuprofen (Motrin) 600 mg PO Q6H PRN PRN Reason: Pain (moderate 4-6) Last Admin: 04/09/18 05:36 Dose: 600 mg Ketorolac Tromethamine (Toradol) 30 mg IVPUSH Q6H PRN PRN Reason: Pain (moderate 4-6) Lorazepam (Ativan) 2 mg IVPUSH Q4H PRN PRN Reason: Seizures Lorazepam (Ativan) 1 mg IV Q6H PRN PRN Reason: Anxiety Last Admin: 04/08/18 08:38 Dose: 1 mg Magnesium Sulfate (Pharmacy To Dose - Magnesium Replacement) 0 dose .XX ASDIRECTED PRN PRN Reason: RX TO WATCH MAG Methimazole (Methimazole) 10 mg PO Q8H [facility] Last Admin: 04/09/18 05:19 Dose: 10 mg Metoprolol Tartrate (Lopressor) 5 mg IVPUSH Q4H PRN PRN Reason: Tachycardia Metoprolol Tartrate (Lopressor) 25 mg PO Q12H [facility] Last Admin: 04/08/18 21:27 Dose: 25 mg Miscellaneous Information (Remove Patch) 1 ea TRDERM DAILY [facility] Last Admin: 04/08/18 08:51 Dose: Not Given Nicotine (Habitrol) 21 mg TRDERM DAILY PRN PRN Reason: Nicotine Dependence Last Admin: 04/08/18 08:19 Dose: 21 mg Ondansetron HCl (Zofran) 4 mg IV Q6H PRN PRN Reason: Nausea/Vomiting Polyethylene Glycol (Miralax) 17 gm PO DAILY PRN PRN Reason: Constipation Potassium Chloride (Pharmacy To Dose - Potassium Replacement) 0 dose .XX ASDIRECTED PRN PRN Reason: RX TO WATCH K Quetiapine Fumarate (Seroquel) 50 mg PO BEDTIME [facility] Last Admin: 04/08/18 23:24 Dose: Not Given Senna/Docusate Sodium (Senna Plus) 1 tab PO BID PRN PRN Reason: Constipation Sertraline HCl (Zoloft) 50 mg PO DAILY [facility] Last Admin: 04/08/18 13:17 Dose: 50 mg Sodium Chloride (Saline Flush) 10 ml FLUSH ASDIRECTED PRN PRN Reason: Keep Vein Open Last Admin: 04/07/18 03:16 Dose: 10 ml Tramadol HCl (Ultram) 100 mg PO Q6H PRN PRN Reason: Pain (moderate 4-6) Last Admin: 04/08/18 08:19 Dose: 100 mg Discontinued Medications Aspirin (Aspirin) 324 mg PO ONETIME ONE Stop: 04/07/18 05:47 Last Admin: 04/07/18 05:56 Dose: 324 mg Diltiazem HCl (Cardizem) 60 mg PO ONETIME ONE Stop: 04/07/18 02:22 Last Admin: 04/07/18 02:24 Dose: 60 mg Diltiazem HCl (Cardizem) 10 mg IVPUSH ONETIME ONE Stop: 04/07/18 03:07 Last Admin: 04/07/18 03:16 Dose: 10 mg Enoxaparin Sodium (Lovenox) 40 mg SUBCUT Q24H [facility] Last Admin: 04/07/18 12:02 Dose: Not Given Famotidine (Pepcid) 20 mg PO BID [facility] Stop: 04/08/18 21:01 Last Admin: 04/08/18 21:27 Dose: 20 mg Sodium Chloride (Normal Saline) 1,000 mls @ 1,000 mls/hr IV ONETIME ONE Stop: 04/07/18 04:05 Last Admin: 04/07/18 03:16 Dose: 1,000 mls/hr Ketorolac Tromethamine (Toradol) 60 mg IM Q6H PRN PRN Reason: Pain (moderate 4-6) Ketorolac Tromethamine (Toradol) 30 mg IM Q6H PRN PRN Reason: Pain (moderate 4-6) Lorazepam (Ativan) 0.5 mg PO ONETIME ONE Stop: 04/07/18 02:21 Last Admin: 04/07/18 02:24 Dose: 0.5 mg Prednisone (Prednisone) 60 mg PO ONETIME ONE Stop: 04/07/18 12:05 Last Admin: 04/07/18 12:47 Dose: 60 mg Prednisone (Prednisone) 40 mg PO WITHBREAKFAST [facility] Stop: 04/11/18 07:01 Propylthiouracil (Propylthiouracil) 200 mg PO Q6H [facility] Last Admin: 04/07/18 12:53 Dose: Not Given Quetiapine Fumarate (Seroquel) 25 mg PO DAILY [facility] Last Admin: 04/08/18 12:30 Dose: Not Given - Exam General: Alert, Oriented, Cooperative, No Acute Distress HEENT: Pupils Equal, Pupils Reactive, EOMI, Mucous Membr. Moist/[place], Other (a few dental caries noted on his left upper mouth ) Neck: Supple Lungs: Clear to Auscultation, Normal Respiratory Effort Cardiovascular: Regular Rate, Regular Rhythm. No: No Murmurs GI/Abdominal Exam: Normal Bowel Sounds, Soft, Non-Tender, No Organomegaly, No Distention, No Abnormal Bruit, No Mass (Male) Exam: Deferred Back Exam: Normal Inspection, Full Range of Motion Extremities: Normal Inspection, Normal Range of Motion, Non-Tender, No Pedal Edema, Normal Capillary Refill Peripheral Pulses: 3+: Dorsalis Pedis (L), Dorsalis Pedis (R) Skin: Warm, Dry, Intact, Other (diffuse body tattoos) Neurological: No New Focal Deficit Psy/Mental Status: Alert, Normal Affect, Normal Mood - Problem List Review Problem List Initiated/Reviewed/Updated: Yes - My Orders Last 24 Hours: My Active Orders 04/08/18 09:00 Remove Patch 1 ea TRDERM DAILY 04/08/18 09:39 Acetaminophen/HYDROcodone [[place] 325-5 MG] 1 tab PO Q4H PRN 04/08/18 16:10 Admission Status [Patient Status] [ADT] Routine 04/09/18 05:25 BASIC METABOLIC PANEL,BMP [CHEM] AM MAGNESIUM [CHEM] AM 04/09/18 07:00 Echo Comp wo Cont [US] 0700 04/10/18 05:11 BASIC METABOLIC PANEL,BMP [CHEM] AM CBC WITH AUTO DIFF [HEME] AM MAGNESIUM [CHEM] AM - Plan Plan:: Assessment/Plan: Acute: Thyroid Toxicosis/Overt Hyperthyroidism, Improved - FT4 is 2.31; TSH is essentially 0 - He is on Methimazole, Steroid and Cholestyramine - BB for adrenergic tone - Ordered hyperthyroid enzymes - pending - Thyroid ultrasound shows possible 1.5 cm nodule within the left lobe; repeat U/S in 6 months Substance Abuse - Acute on Chronic - He has an underlying depression on zoloft for maintenance medications - Carries a hx/o polysubstance abuse however he has been using primarily marijuana and meth - 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; he last intake was yesterday - He has been to chemical dependency treatment at least twice: 2011 in [place] and 2014 in [place] - Treatment is primarily supportive - He is amenable to go for rehab - Dr. Bradley recommends Seroquel 50 mg po QHS for mood stability/sleep initiation/anxiety reduction and Ativan 1 mg Q6h PRN for anxiety/agitation - Consult SA/Tele psych both recommend inpatient treatment; Alan Mims has commitment paperwork for patient once medically cleared Depression - Not suicidal or homocidal - He takes zoloft for maintenance; for Dr. Bradley resume Zoloft 50 mg po AM - Has a GF with a 4 years child - He is currently unemployed - Tele-psych consult Nicotine Dependence - Smokes 2pp since 12 years old - Counseled on Smoking Cessation - Nicotine path daily Hypomagnesemia - Mg 1.6 - 2/2 inadequate intake - Pharmacy to replete and monitor HTN - Likely secondary to above - BP this AM of 156/108 mmHg - He is receiving Metoprolol 25 mg po BID for thyrotoxicosis - HCTZ low dose for now Resolved: S/p Atrial Fibrillation w/ RVR - HR int he 140s; now in sinus rhythm - 2/2 Methamphetamine use (stimulant) and Thyroid Toxicosis/Overt Hypothyroidism - Current on cardizem drip; he may need beta blocked - 2D echo in AM - Thyroid Panel - Titrate to come off drip and will start low dose BB S/p Probable Seizure w/ Collapsed - Likely 2/2 [employer] overstimulation with illicit drugs (Marijuana and Methamphetamines) - It appears he may have post ictal state however he was alert/awake and oriented with me in the unit - 2D echo in AM - PRN Ativan for abortive seizure - Continue to monitor S/p Toothache - He has significant cavities w/ evidence of "meth mouth" - We have no oral surgeon or dentist for consultation - PRN pain medication and proper oral hygiene Plan: He remains clinically stable Continue rate control agent PRN Ativan for abortive seizure Seroquel for sleep initiation/anxiety at night Routine AM Labs Ambulate as tolerated Seizure Precautions SW/CM for d/c planning He is still amenable to go for chemical dependency treatment Discharge to [facility] once medically cleared Met up mom at [facility] and updated her about patient's diagnoses, treatment and discharge care plan.
[2018-04-09] MEDS ORDERED: Magnesium Sulfate/Water 2 GM in Premix Bag 1 BAG IV ONE (08:30)
[2018-04-09] MEDS: Nicotine 21 MG/24 Hr Patch TRDERM PRN (09:32)
[2018-04-09] MEDS: Metoprolol Tartrate 25 MG Tab PO SCH ×2 (09:33→20:14)
[2018-04-09] MEDS: Sertraline 50 MG Tab PO SCH (09:33)
[2018-04-09] MEDS: Cholestyramine/Sucrose Powder 4 GM Packet PO SCH (09:33)
--- NOTE | 2018-04-09 12:24 | CONS ---
CONSULTING PHYSICIAN: Alan Mims LAC DATE OF CONSULTATION: 04/09/2018 TIME: 11 a.m. IDENTIFICATION: The patient is a 23-year-old male who was admitted to [facility] on 04/07/2018. An Alcohol and Drug consultation was requested by his medical treatment team. SOURCE OF INFORMATION: Patient records, staff report, background research, and prescription drug monitoring report. HISTORY OF PRESENT ILLNESS: The patient is a 23-year-old male who presents to [facility] with a history of chronic and severe polysubstance dependent use, primarily methamphetamine and marijuana. The patient was brought to the emergency room by police after being arrested outside of his apartment, where he and a friend were using methamphetamine intravenously. The patient experienced seizures, hyperthyroidism, and atrial fibrillation at the time of admittance. In addition, the patient is suffering from significant tooth decay and reports that he has 11 teeth that need to come out. The patient reports that he has been using methamphetamine intravenously since age 12 and is unable to arrest his addiction without professional intervention. PSYCHOSOCIAL HISTORY: The patient reports he was born and raised in [place], [place], by his biological parents. He has one younger brother. The patient's highest level of education is the 11th grade. He reports that he continued to use polysubstance, methamphetamine, Adderall and cannabis, and supported himself through distribution after getting out of school. The patient reports that, in 2013, he was arrested for possession and was sent to residential for approximately a year. He states he spent his 19st birthday in [facility] and now with 23th birthday in the hospital. The patient reports that the longest period of sobriety he has had in his lifetime was for about a year and a half while in residential and about 2 years after he got out of residential. The patient reports that he has never been , but has been in a significant relationship for the past 3 years. He has no biological children. The patient reports that his primary residence is at his parent's home in [place]. However, currently he has been couch surfing and living in his car in the [facility]. The patient denies any prior service. The patient reports that he is currently on probation and facing additional legal charges from his arrest prior to coming to the hospital. He anticipates that he will be going to [facility] as soon as he is able to get out of the hospital. However, the patient is requesting treatment as an alternative as he states he wants to get clean. The patient reports that he is agnostic and enjoys playing video games in his spare time. MENTAL HEALTH HISTORY: The patient was evaluated by Dr. Bradley and was diagnosed with major depressive disorder and anxiety disorder, NOS. SUBSTANCE ABUSE HISTORY: Tobacco: The patient reports that he began smoking cigarettes at approximately age 12 and currently smokes 2 packs a day. Methamphetamine: The patient reports that he started using methamphetamine at age 12 and that he would use primarily on the weekends. However, within a year, he began using methamphetamine intravenously and reports that he liked the feeling of "the needle and hitting his veins." He began by using about a gram a day; however, it escalated to an 8 ball a day, hitting the needle about 3 to 4 times a day. He estimates that this may have gone on for about 3 years until he went to residential in 2013. The patient reports that he was able to stay sober for about a year and a half after getting out of residential in 2014 and began using again approximately in 2016. He states that, in the past year, he has been using about a gram to a gram and a half a day intervenously. His last use was prior to being admitted to the hospital. According to physician reports, the patient is suffering from hyperthyroidism, atrial fibrillation, and seizures secondary to his methamphetamine use. The patient is also reporting that he has 11 teeth that need to be pulled secondary to methamphetamine-exacerbated tooth decay. Cannabis: The patient reports that he began to smoke cannabis at age 12 and while in high school, he smoked about a 0.25 ounce a week for his anxiety. After he left high school, he states he has been smoking about an 8th every day, and this pattern continues to the present. The patient reports that both his parents are alcoholics. He reports that he has had two prior chemical dependency treatments in the past for methamphetamine and marijuana use; one in [place] in 2011 and in [place] in 2014. He states his longest period of sobriety was about two and a half years. He began using again in the past year. DIAGNOSES: The patient meets DSM-5 criteria for the following diagnoses; 1. F15.20, stimulant use disorder, severe, methamphetamine type. 2. F15.229, stimulant intoxication, methamphetamine type, comorbid. 3. F15.23, stimulant withdrawal. 4. F17.200, tobacco use disorder, severe. 5. F12.20, cannabis use disorder, severe. ASAM DIMENSIONS: 1. Dimension 1: Score 3-plus. The patient presents with potential severe withdrawal risk. The patient demonstrates poor ability to tolerate and cope with withdrawal discomfort. The patient presents with severe signs and symptoms of intoxication indicating possible imminent danger to self or others. 2. Dimension 2: Score 2. The patient has some difficulty tolerating and coping with physical problems and has other biomedical problems, which may interfere with recovery or treatment. The patient has need for medical services that may interfere with recovery or treatment. 3. Dimension 3: Score 1-plus. The patient has been diagnosed by Dr. Bradley with major depressive disorder and anxiety disorder, NOS. The patient's emotional concerns may be relative to negative consequences and affects of addiction. The patient has not been taking prescribed medication for existing conditions. 4. Dimension 4: Score 3. The patient verbalizes a willingness to enter treatment and appears to have some insight into the negative consequences of his addictions. However, he also verbalizes that if he does not go to treatment, he will go to [facility] and historically, for the past 10 years, has been unable to maintain long-term sobriety from methamphetamine and verbalizes no intention of quitting marijuana. 5. Dimension 5: Score 4. The patient has poor skills to cope with and interrupt in addiction problems or to avoid or limit relapse or continued use. The patient experiences severe craving with minimal ability to resist using. The patient has been using intravenously since age 12 and demonstrates daily intoxication. The patient appears to be in imminent danger and unable to care for himself due to daily intoxication. 6. Dimension 6: Score 3-plus. The patient has unstable residence and is currently living in his car on people's couches. The patient is involved in a subculture that strongly encourages abusive use. The patient's access to illicit drugs is pervasive. The patient is involved in serious criminal activity. ASSESSMENT SUMMARY: The patient appears to be a nice young man who presents in late stage 3 addiction and polysubstance dependence, stimulants and THC. The patient has been using methamphetamine intravenously since age 12 and appears to be unable to arrest his addiction without professional intervention. The patient is verbalizing a willingness to follow through with treatment. However, it may be that his legal jeopardy is motivating this decision. Historically, the patient has demonstrated that he is unable to achieve and maintain long-term sobriety, which is exacerbated by needle use and involvement with criminal activity to use and distribute illegal substances. Currently, the patient is suffering from atrial fibrillation, hyperthyroidism, anorexia, seizures, and serious tooth decay and loss secondary to his methamphetamine use. The patient meets ASAM imminent danger criteria for petition for involuntary commitment as he is unable to arrest his addiction without professional intervention. Dr. Alva and GABRIEL Le, were consulted regarding the results of this evaluation and were in agreement with a petition for continued care with continued medical observation. A petition for involuntary commitment was executed on 04/08/2018 for the [facility]. RECOMMENDATIONS: Level 3.7, medically-managed intensive inpatient treatment on a commitment for the [facility]. MILES /[id number]
[2018-04-09] MEDS: Enoxaparin 40 MG/0.4 ML Syringe SUBCUT SCH (12:41)
[2018-04-09] MEDS: Hydrochlorothiazide 12.5 MG Cap PO SCH (15:02)
[2018-04-09] MEDS: QUEtiapine 25 MG Tab PO SCH (20:14)
[2018-04-10] MEDS: Methimazole 5 MG Tab PO SCH ×3 (05:39→20:19)
[2018-04-10] MEDS: Hydrocortisone Sodium Succinate 100 MG/2 ML SDV IVPUSH SCH ×4 (05:39→20:33)
[2018-04-10] MEDS: Hydrochlorothiazide 12.5 MG Cap PO SCH ×2 (05:39→15:34)
[2018-04-10] MEDS: Nicotine 21 MG/24 Hr Patch TRDERM PRN (09:25)
[2018-04-10] MEDS: Metoprolol Tartrate 25 MG Tab PO SCH ×2 (09:25→20:20)
[2018-04-10] MEDS: Sertraline 50 MG Tab PO SCH (09:26)
[2018-04-10] MEDS: Potassium Chloride 20 MEQ Tab.ER PO SCH ×2 (09:28→12:21)
[2018-04-10] MEDS: Enoxaparin 40 MG/0.4 ML Syringe SUBCUT SCH (12:21)
[2018-04-10] MEDS ORDERED: Nicotine Polacrilex 2 MG Gum CHEW PRN (13:39)
--- NOTE | 2018-04-10 13:47 | PCM.PN ---
- General Info Date of Service: 04/10/18 Admission Dx/Problem (Free Text): Admission Diagnosis/Problem Admission Diagnosis/Problem Atrial fibrillation Subjective Update: Follow up Functional Status: Reports: Pain Controlled, Tolerating Diet, Ambulating, Urinating - Review of Systems General: Denies: Fever, Weakness, Fatigue, Malaise, Chills HEENT: Reports: No Symptoms, Other (toothache) Pulmonary: Denies: Shortness of Breath Cardiovascular: Denies: Chest Pain, Palpitations, Dyspnea on Exertion, Lightheadedness Gastrointestinal: Denies: Abdominal Pain, Nausea, Vomiting Genitourinary: Reports: No Symptoms Musculoskeletal: Reports: No Symptoms Skin: Denies: Cyanosis Neurological: Denies: Confusion, Headache, Difficulty Walking, Weakness, Gait Disturbance Psychiatric: Denies: Depression, Anxiety, Agitation, Hallucinations Systems Review Comment:: No overnight or acute issues. He is doing relatively well. His heart rate is controlled. - Patient Data Vitals - Most Recent: Last Vital Signs Temp 37.2 C 04/10/18 09:00 Pulse 100 04/10/18 09:25 Resp 17 04/10/18 09:00 BP 150/87 H 04/10/18 09:25 Pulse Ox 98 04/10/18 09:00 Weight - Most Recent: 70.035 kg I&O - Last 24 Hours: Intake & Output 04/09/18 04/10/18 04/10/18 22:59 06:59 14:59 Intake Total 3010 650 420 Balance 3010 650 420 Lab Results Last 24 Hours: Laboratory Results - last 24 hr 04/08/18 04/10/18 04/10/18 Range/Units 06:25 05:35 05:35 WBC 5.64 (4.23-9.07) K/mm3 RBC 5.41 (4.63-6.08) M/mm3 Hgb 15.0 (13.7-17.5) gm/L Hct 44.1 (40.1-51.0) % MCV 81.5 (79.0-92.2) fl MCH 27.7 (25.7-32.2) pg MCHC 34.0 (32.2-35.5) g/dl RDW Std Deviation 37.7 (35.1-43.9) fL Plt Count 236 (163-337) K/mm3 MPV 9.8 (9.4-12.3) fl Neut % (Auto) 57.5 (34.0-67.9) % Lymph % (Auto) 29.1 (21.8-53.1) % Lipscomb % (Auto) 12.8 H (5.3-12.2) % Eos % (Auto) 0.4 L (0.8-7.0) Baso % (Auto) 0.0 L (0.1-1.2) % Neut # (Auto) 3.25 (1.78-5.38) K/mm3 Lymph # (Auto) 1.64 (1.32-3.57) K/mm3 Lipscomb # (Auto) 0.72 (0.30-0.82) K/mm3 Eos # (Auto) 0.02 L (0.04-0.54) K/mm3 Baso # (Auto) 0.00 L (0.01-0.08) K/mm3 Sodium 143 (136-145) mEq/L Potassium 3.3 L (3.5-5.1) mEq/L Chloride 106 (98-107) mEq/L Carbon Dioxide 30 (21-32) mEq/L Anion Gap 10.3 (5-15) BUN 8 (7-18) mg/dL Creatinine 0.7 (0.7-1.3) mg/dL Est Cr Clr Drug Dosing 159.80 mL/min Estimated GFR (MDRD) > 60 (>60) mL/min BUN/Creatinine Ratio 11.4 L (14-18) Glucose 92 (74-106) mg/dL Calcium 8.9 (8.5-10.1) mg/dL Magnesium 1.9 (1.8-2.4) mg/dl T3 Uptake 47 H (24-39) % Med Orders - Current: Current Medications Hydrocodone Bitart/Acetaminophen ([place] 325-5 Mg) 1 tab PO Q4H PRN PRN Reason: Pain Albuterol/Ipratropium (Duoneb 3.0-0.5 Mg/3 Ml) 3 ml NEB Q4H PRN PRN Reason: Shortness Of Breath/wheezing Bisacodyl (Dulcolax) 5 mg PO DAILY PRN PRN Reason: Constipation Docusate Sodium (Colace) 100 mg PO BID PRN PRN Reason: Constipation Enoxaparin Sodium (Lovenox) 40 mg SUBCUT Q24H [facility] Last Admin: 04/10/18 12:21 Dose: 40 mg Hydralazine HCl (Apresoline) 20 mg IVPUSH Q4H PRN PRN Reason: Hypertension Last Admin: 04/09/18 04:47 Dose: 20 mg Hydrochlorothiazide (Hydrochlorothiazide) 12.5 mg PO BIDDIURETIC [facility] Last Admin: 04/10/18 05:39 Dose: 12.5 mg Hydrocortisone Sodium Succinate (Solu-Cortef) 100 mg IVPUSH Q8H [facility] Stop: 04/11/18 09:00 Last Admin: 04/10/18 12:28 Dose: 100 mg Hydromorphone HCl (Dilaudid) 0.5 mg IVPUSH Q2H PRN PRN Reason: Pain (severe 7-10) Diltiazem HCl 125 mg/ Sodium (Chloride) 125 mls @ 10 mls/hr IV TITRATE [facility]; Protocol Last Titration: 04/07/18 09:10 Dose: 0 mg/hr, 0 mls/hr Promethazine HCl 12.5 mg/ (Sodium Chloride) 50.5 mls @ 100 mls/hr IV Q6H PRN PRN Reason: Nausea/Vomiting Sodium Chloride (Normal Saline) 1,000 mls @ 125 mls/hr IV ASDIRECTED [facility] Last Admin: 04/09/18 03:40 Dose: 125 mls/hr Ibuprofen (Motrin) 600 mg PO Q6H PRN PRN Reason: Pain (moderate 4-6) Last Admin: 04/09/18 05:36 Dose: 600 mg Ketorolac Tromethamine (Toradol) 30 mg IVPUSH Q6H PRN PRN Reason: Pain (moderate 4-6) Lorazepam (Ativan) 2 mg IVPUSH Q4H PRN PRN Reason: Seizures Lorazepam (Ativan) 1 mg IV Q6H PRN PRN Reason: Anxiety Last Admin: 04/08/18 08:38 Dose: 1 mg Magnesium Sulfate (Pharmacy To Dose - Magnesium Replacement) 0 dose .XX ASDIRECTED PRN PRN Reason: RX TO WATCH MAG Methimazole (Methimazole) 10 mg PO Q8H [facility] Last Admin: 04/10/18 12:21 Dose: 10 mg Metoprolol Tartrate (Lopressor) 5 mg IVPUSH Q4H PRN PRN Reason: Tachycardia Metoprolol Tartrate (Lopressor) 25 mg PO Q12H [facility] Last Admin: 04/10/18 09:25 Dose: 25 mg Miscellaneous Information (Remove Patch) 1 ea TRDERM DAILY [facility] Last Admin: 04/10/18 09:29 Dose: 1 ea Nicotine (Habitrol) 21 mg TRDERM DAILY PRN PRN Reason: Nicotine Dependence Last Admin: 04/10/18 09:25 Dose: 21 mg Ondansetron HCl (Zofran) 4 mg IV Q6H PRN PRN Reason: Nausea/Vomiting Polyethylene Glycol (Miralax) 17 gm PO DAILY PRN PRN Reason: Constipation Potassium Chloride (Pharmacy To Dose - Potassium Replacement) 0 dose .XX ASDIRECTED PRN PRN Reason: RX TO WATCH K Quetiapine Fumarate (Seroquel) 50 mg PO BEDTIME [facility] Last Admin: 04/09/18 20:14 Dose: 50 mg Senna/Docusate Sodium (Senna Plus) 1 tab PO BID PRN PRN Reason: Constipation Sertraline HCl (Zoloft) 50 mg PO DAILY [facility] Last Admin: 04/10/18 09:26 Dose: 50 mg Sodium Chloride (Saline Flush) 10 ml FLUSH ASDIRECTED PRN PRN Reason: Keep Vein Open Last Admin: 04/07/18 03:16 Dose: 10 ml Tramadol HCl (Ultram) 100 mg PO Q6H PRN PRN Reason: Pain (moderate 4-6) Last Admin: 04/08/18 08:19 Dose: 100 mg Discontinued Medications Aspirin (Aspirin) 324 mg PO ONETIME ONE Stop: 04/07/18 05:47 Last Admin: 04/07/18 05:56 Dose: 324 mg Cholestyramine Resin (Cholestyramine Packet) 4 gm PO BID [facility] Stop: 04/09/18 09:01 Last Admin: 04/09/18 09:33 Dose: 4 gm Diltiazem HCl (Cardizem) 60 mg PO ONETIME ONE Stop: 04/07/18 02:22 Last Admin: 04/07/18 02:24 Dose: 60 mg Diltiazem HCl (Cardizem) 10 mg IVPUSH ONETIME ONE Stop: 04/07/18 03:07 Last Admin: 04/07/18 03:16 Dose: 10 mg Enoxaparin Sodium (Lovenox) 40 mg SUBCUT Q24H [facility] Last Admin: 04/07/18 12:02 Dose: Not Given Famotidine (Pepcid) 20 mg PO BID [facility] Stop: 04/08/18 21:01 Last Admin: 04/08/18 21:27 Dose: 20 mg Sodium Chloride (Normal Saline) 1,000 mls @ 1,000 mls/hr IV ONETIME ONE Stop: 04/07/18 04:05 Last Admin: 04/07/18 03:16 Dose: 1,000 mls/hr Magnesium Sulfate 2 gm/ Premix 50 mls @ 25 mls/hr IV ONETIME ONE Stop: 04/09/18 10:29 Last Admin: 04/09/18 08:46 Dose: 25 mls/hr Ketorolac Tromethamine (Toradol) 60 mg IM Q6H PRN PRN Reason: Pain (moderate 4-6) Ketorolac Tromethamine (Toradol) 30 mg IM Q6H PRN PRN Reason: Pain (moderate 4-6) Lorazepam (Ativan) 0.5 mg PO ONETIME ONE Stop: 04/07/18 02:21 Last Admin: 04/07/18 02:24 Dose: 0.5 mg Potassium Chloride (Klor-Con M20) 40 meq PO Q4H [facility] Stop: 04/10/18 12:31 Last Admin: 04/10/18 12:21 Dose: 40 meq Prednisone (Prednisone) 60 mg PO ONETIME ONE Stop: 04/07/18 12:05 Last Admin: 04/07/18 12:47 Dose: 60 mg Prednisone (Prednisone) 40 mg PO WITHBREAKFAST [facility] Stop: 04/11/18 07:01 Propylthiouracil (Propylthiouracil) 200 mg PO Q6H [facility] Last Admin: 04/07/18 12:53 Dose: Not Given Quetiapine Fumarate (Seroquel) 25 mg PO DAILY [facility] Last Admin: 04/08/18 12:30 Dose: Not Given - Exam General: Alert, Oriented, Cooperative, No Acute Distress HEENT: Pupils Equal, Pupils Reactive, EOMI, Mucous Membr. Moist/[place] Neck: Supple, Trachea Midline Lungs: Clear to Auscultation, Normal Respiratory Effort Cardiovascular: Regular Rhythm, Bradycardia GI/Abdominal Exam: Normal Bowel Sounds, Soft, Non-Tender, No Organomegaly, No Distention, No Abnormal Bruit (Male) Exam: Deferred Back Exam: Normal Inspection, Full Range of Motion Extremities: Normal Inspection, Normal Range of Motion, Non-Tender, No Pedal Edema, Normal Capillary Refill Peripheral Pulses: 3+: Posterior Tibial (L), Posterior Tibial (R), Dorsalis Pedis (L), Dorsalis Pedis (R) Skin: Warm, Dry, Intact Neurological: No New Focal Deficit Psy/Mental Status: Alert, Normal Affect, Normal Mood. No: Anxious, Agitated, Suicidal Ideation, Homicidal Ideation, Hallucinations, Withdrawal Symptoms - Problem List & Annotations (1) Hyperthyroidism determined by thyroid function test SNOMED Code(s): 39583679 Code(s): E05.90 - THYROTOXICOSIS, UNSP WITHOUT THYROTOXIC CRISIS OR STORM; R94.6 - ABNORMAL RESULTS OF THYROID FUNCTION STUDIES Status: Acute Current Visit: Yes (2) Thyroid nodule, ectopic, toxic, with crisis SNOMED Code(s): 451598503 Code(s): E05.31 - THYROTXCOSIS FROM ECTOPIC THYROID TISSUE W THYROTOXIC CRISIS Status: Resolved Current Visit: Yes (3) Atrial fibrillation with RVR SNOMED Code(s): 736364515819598 Code(s): I48.91 - UNSPECIFIED ATRIAL FIBRILLATION Status: Resolved Current Visit: Yes (4) Methamphetamine intoxication SNOMED Code(s): 28610744516935924 Code(s): F15.929 - OTHER STIMULANT USE, UNSP WITH INTOXICATION, UNSPECIFIED Status: Acute Current Visit: Yes (5) Dental caries SNOMED Code(s): 73134995 Code(s): K02.9 - DENTAL CARIES, UNSPECIFIED Status: Acute Current Visit: No (6) Drug abuse SNOMED Code(s): 94732454 Code(s): F19.10 - OTHER PSYCHOACTIVE SUBSTANCE ABUSE, UNCOMPLICATED Status : Chronic Current Visit: No (7) Seizure SNOMED Code(s): 32420814 Code(s): R56.9 - UNSPECIFIED CONVULSIONS Status: Resolved Current Visit: Yes - Problem List Review Problem List Initiated/Reviewed/Updated: Yes - My Orders Last 24 Hours: My Active Orders 04/09/18 14:00 hydroCHLOROthiazide 12.5 mg PO BIDDIURETIC - Plan Plan:: Assessment/Plan: Acute: Thyroid Toxicosis/Overt Hyperthyroidism, Stable - FT4 is 2.31; TSH is essentially 0 - He is on Methimazole, Steroid and Cholestyramine - BB for adrenergic tone - Ordered hyperthyroid enzymes - pending - Thyroid ultrasound shows possible 1.5 cm nodule within the left lobe; repeat U/S in 6 months Substance Abuse - Acute on Chronic - He has an underlying depression on zoloft for maintenance medications - Carries a hx/o polysubstance abuse however he has been using primarily marijuana and meth - 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 Bradley recommends Seroquel 50 mg po QHS for mood stability/sleep initiation/anxiety reduction and Ativan 1 mg Q6h PRN for anxiety/agitation - Consult SA/Tele psych both recommend inpatient treatment; [facility] M[facility] has commitment paperwork for patient once medically cleared Depression - Remains no suicidal or homocidal - He takes zoloft for maintenance; for Dr. Bradley resume Zoloft 50 mg po AM - Has a GF with a 4 years child - He is currently unemployed Nicotine Dependence - Smokes 2pp since 12 years old - Counseled on Smoking Cessation - Nicotine path daily and Nicorette gum HTN, Improved - Likely secondary to above - BP this AM of 156/108 mmHg - Continue Metoprolol 25 mg po BID and HCTZ 12.5 mg po BID - Will add Low dose lisinopril Resolved: S/p Atrial Fibrillation w/ RVR - HR int he 140s; now in sinus rhythm - 2/2 Methamphetamine use (stimulant) and Thyroid Toxicosis/Overt Hypothyroidism - Current on cardizem drip; he may need beta blocked - 2D echo in AM - Thyroid Panel - Titrate to come off drip and will start low dose BB S/p Probable Seizure w/ Collapsed - Likely 2/2 [employer] overstimulation with illicit drugs (Marijuana and Methamphetamines) - It appears he may have post ictal state however he was alert/awake and oriented with me in the unit - 2D echo in AM - PRN Ativan for abortive seizure - Continue to monitor S/p Toothache - He has significant cavities w/ evidence of "meth mouth" - We have no oral surgeon or dentist for consultation - PRN pain medication and proper oral hygiene S/p Hypomagnesemia - Mg 1.6 --> 1.9 - 2/2 inadequate intake - Pharmacy to replete and monitor Plan: He remains clinically stable Continue rate control agent PRN Ativan for abortive seizure Seroquel for sleep initiation/anxiety at night Routine AM Labs Ambulate as tolerated Seizure Precautions SW/CM for d/c planning Transfer to [facility] for inpatient treatment Discharge in AM since transportation is not available today Completed physician to physician communication with Dr. Gayle at [facility]
[2018-04-10] MEDS: Ibuprofen 600 MG Tab PO PRN (20:03)
[2018-04-10] MEDS: QUEtiapine 25 MG Tab PO SCH (20:20)
[2018-04-10] MEDS: Lisinopril 20 MG Tab PO SCH (20:20)
[2018-04-10] MEDS: Sodium Chloride 0.9% 10 ML Syringe FLUSH PRN (20:33)
[2018-04-11] MEDS: Methimazole 5 MG Tab PO SCH (06:38)
[2018-04-11] MEDS: Hydrocortisone Sodium Succinate 100 MG/2 ML SDV IVPUSH SCH (06:38)
[2018-04-11] MEDS: Hydrochlorothiazide 12.5 MG Cap PO SCH (06:38)
--- NOTE | 2018-04-11 06:57 | PCM.DCSUM1 ---
<Ozzy Tobin - Last Filed: 04/11/18 08:46> Discharge Summary - Hospital Course HPI Initial Comments: This is a 23 yo young white male with past medical hx/o anxiety, depression and chronic substance abuse who was brought in by local police for possible drug overdose. He admits to injecting himself with meth last night and after that he started feeling unwell w/ palpitation, tremors, anxiety associated reports of seizure like activity w/ collapsed. The event was brief but could not remember the ensuing event after he woke up. He denies any chest pain or short shortness of breath. He did however still complaints of racing heart rate. Patient was initially seen and evaluated in ED. His initial work up shows a CBC remarkable for WBC of 11.43, RBC of 6.12, Neutrophils of 73.1%, and Lymphocytes of 17.3%. His chemistry is significant of AST of 13 and Alk phos of 156. His UA is positive for Ampheth and Marijuana. His OCTAVIO level is 0. Patient received initial treatment in ED before he was sent to use for further management. He is essentially here for medical management of new onset of atrial fibrillation and meth/marijuana detoxification. Diagnosis: Stroke: No Modified [place] Scale: No Symptoms at All Modified [place] Scale Score: 0 - Discharge Data Discharge Date: 04/11/18 (Admit date: 04/07/17) Discharge Disposition: DC/Tfer to Psych Hosp/Unit 65 Condition: Stable - Patient Summary/Data Consults: Consultations 04/07/18 07:28 Consult to Case Management/Transportation Solutions Manager [CONS] Routine Consult to Spiritual Care [CONS] Routine 04/07/18 07:32 Consult for Substance Abuse [CONS] Routine 04/07/18 07:33 Consult to Physician [CONS] Routine Hospital Course: Assessment/Plan: Acute: Thyroid Toxicosis/Overt Hyperthyroidism, Stable - FT4 is 2.31; TSH is essentially 0 - He is on Methimazole, Steroid and Cholestyramine - BB for adrenergic tone - Ordered hyperthyroid enzymes - pending - Thyroid ultrasound shows possible 1.5 cm nodule within the left lobe; repeat U/S in 6 months Substance Abuse - Acute on Chronic - He has an underlying depression on zoloft for maintenance medications - Carries a hx/o polysubstance abuse however he has been using primarily marijuana and meth - 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 Bradley recommends Seroquel 50 mg po QHS for mood stability/sleep initiation/anxiety reduction and Ativan 1 mg Q6h PRN for anxiety/agitation - Consult SA/Tele psych both recommend inpatient treatment; Alan Mims has commitment paperwork for patient once medically cleared Depression - Remains no suicidal or homocidal - He takes zoloft for maintenance; for Dr. Bradley resume Zoloft 50 mg po AM - Has a GF with a 4 years child - He is currently unemployed Nicotine Dependence - Smokes 2pp since 12 years old - Counseled on Smoking Cessation - Nicotine path daily and Nicorette gum HTN, Improved - Likely secondary to above - BP this AM of 156/108 mmHg - Continue Metoprolol 25 mg po BID and HCTZ 12.5 mg po BID - Will add Low dose lisinopril Resolved: S/p Atrial Fibrillation w/ RVR - HR int he 140s; now in sinus rhythm - 2/2 Methamphetamine use (stimulant) and Thyroid Toxicosis/Overt Hypothyroidism - Current on cardizem drip; he may need beta blocked - 2D echo in AM - Thyroid Panel - Titrate to come off drip and will start low dose BB S/p Probable Seizure w/ Collapsed - Likely 2/2 [employer] GR[employer]ER overstimulation with illicit drugs (Marijuana and Methamphetamines) - It appears he may have post ictal state however he was alert/awake and oriented with me in the unit - 2D echo in AM - PRN Ativan for abortive seizure - Continue to monitor S/p Toothache - He has significant cavities w/ evidence of "meth mouth" - We have no oral surgeon or dentist for consultation - PRN pain medication and proper oral hygiene S/p Hypomagnesemia - Mg 1.6 --> 1.9 - 2/2 inadequate intake - Pharmacy to replete and monitor Plan: He remains clinically stable Continue rate control agent PRN Ativan for abortive seizure Seroquel for sleep initiation/anxiety at night Routine AM Labs Ambulate as tolerated Seizure Precautions SW/CM for d/c planning Transfer to [facility] for inpatient treatment Discharge in AM since transportation is not available today Completed physician to physician communication with Dr. Gayle at [facility] - Patient Instructions Diet: Usual Diet as Tolerated Activity: As Tolerated Driving: Do Not Drive Showering/Bathing: May Shower Notify Provider of: Fever, Increased Pain, Swelling and Redness, Nausea and/or Vomiting Other/Special Instructions: - Follow up with PCP in 1 week with repeat CBC (to monitor Methimazole side effects) - Discharge Plan *PRESCRIPTION DRUG MONITORING PROGRAM REVIEWED*: Not Applicable *COPY OF PRESCRIPTION DRUG MONITORING REPORT IN PATIENT YESENIA: Not Applicable Prescriptions/Med Rec: clonazePAM [Klonopin] 1 mg PO TID PRN #15 tablet PRN Reason: Anxiety/Tremors hydroCHLOROthiazide [Hydrochlorothiazide] 12.5 mg PO BIDDIURETIC #60 cap Lisinopril [Prinivil] 20 mg PO DAILY #30 tablet methIMAzole [Methimazole] 10 mg PO Q8H #90 tablet Metoprolol Tartrate [Lopressor] 25 mg PO Q12H #30 tablet Home Medications: Home Meds Metoprolol Tartrate [Lopressor] 25 mg PO Q12H #30 tablet 04/09/18 [Rx] Sertraline [Zoloft] 50 mg PO DAILY #0 04/09/18 [Rx] clonazePAM [Klonopin] 1 mg PO TID PRN #15 tablet 04/09/18 [Rx] methIMAzole [Methimazole] 10 mg PO Q8H #90 tablet 04/09/18 [Rx] Lisinopril [Prinivil] 20 mg PO DAILY #30 tablet 04/10/18 [Rx] hydroCHLOROthiazide [Hydrochlorothiazide] 12.5 mg PO BIDDIURETIC #60 cap [Rx] Patient Handouts: Hyperthyroidism, Thyroid Nodule, Substance Use Disorder and Mental Illness, Preventive Dental Care, Adult, Managing Your Hypertension, Stimulant Use Disorder-Methamphetamines, Seizure, Adult, [id number], Steps to Quit Smoking, Atrial Fibrillation, [id number], Hypertension Referrals: PCP,None [Primary Care Provider] - - Discharge Summary/Plan Comment DC Time >30 min.: Yes (45 mins ) - General Info Date of Service: 04/11/18 Admission Dx/Problem (Free Text: Admission Diagnosis/Problem Admission Diagnosis/Problem Atrial fibrillation Subjective Update: In to see Jono. He is quite sleepy and complaining of his toothache but no other concerns or complaints. He will be transferred to the [facility] today via [facility]. Functional Status: Reports: Pain Controlled, Tolerating Diet, Ambulating, Urinating. Denies: New Symptoms - Review of Systems General: Reports: No Symptoms. Denies: Fever, Weakness, Fatigue, Malaise, Chills HEENT: Reports: Other (Tooth Pain ). Denies: Sore Throat, Visual Changes Pulmonary: Reports: No Symptoms. Denies: Shortness of Breath, Cough, Sputum, Wheezing Cardiovascular: Reports: No Symptoms. Denies: Chest Pain, Palpitations, Dyspnea on Exertion, Edema, Lightheadedness Gastrointestinal: Reports: No Symptoms. Denies: Abdominal Pain, Constipation, Diarrhea, Nausea, Vomiting Genitourinary: Reports: No Symptoms Musculoskeletal: Reports: No Symptoms Skin: Reports: No Symptoms Neurological: Reports: No Symptoms. Denies: Confusion, Difficulty Walking, Gait Disturbance Psychiatric: Reports: No Symptoms - Patient Data Vitals - Most Recent: Last Vital Signs Temp 97.8 F 04/11/18 05:00 Pulse 100 04/10/18 20:20 Resp 16 04/11/18 05:00 BP 122/73 04/11/18 05:00 Pulse Ox 98 04/11/18 05:00 Weight - Most Recent: 71.668 kg I&O - Last 24 hours: Intake & Output 04/10/18 04/10/18 04/11/18 14:59 22:59 06:59 Intake Total 098 044 1949 Balance 591 082 9877 Lab Results - Last 24 hrs: Laboratory Results - last 24 hr 04/08/18 04/08/18 04/10/18 Range/Units 06:25 06:25 05:35 Sodium 143 (136-145) mEq/L Potassium 3.3 L (3.5-5.1) mEq/L Chloride 106 (98-107) mEq/L Carbon Dioxide 30 (21-32) mEq/L Anion Gap 10.3 (5-15) BUN 8 (7-18) mg/dL Creatinine 0.7 (0.7-1.3) mg/dL Est Cr Clr Drug Dosing 159.80 mL/min Estimated GFR (MDRD) > 60 (>60) mL/min BUN/Creatinine Ratio 11.4 L (14-18) Glucose 92 (74-106) mg/dL Calcium 8.9 (8.5-10.1) mg/dL Magnesium 1.9 (1.8-2.4) mg/dl T4-Binding Globulin 12 L (13-39) ug/mL Thyroid Stim Immunoglob 2.45 H (0.00-0.55) IU/L Med Orders - Current: Current Medications Hydrocodone Bitart/Acetaminophen ([place] 325-5 Mg) 1 tab PO Q4H PRN PRN Reason: Pain Last Admin: 04/10/18 20:25 Dose: 1 tab Albuterol/Ipratropium (Duoneb 3.0-0.5 Mg/3 Ml) 3 ml NEB Q4H PRN PRN Reason: Shortness Of Breath/wheezing Bisacodyl (Dulcolax) 5 mg PO DAILY PRN PRN Reason: Constipation Docusate Sodium (Colace) 100 mg PO BID PRN PRN Reason: Constipation Enoxaparin Sodium (Lovenox) 40 mg SUBCUT Q24H [facility] Last Admin: 04/10/18 12:21 Dose: 40 mg Hydralazine HCl (Apresoline) 20 mg IVPUSH Q4H PRN PRN Reason: Hypertension Last Admin: 04/09/18 04:47 Dose: 20 mg Hydrochlorothiazide (Hydrochlorothiazide) 12.5 mg PO BIDDIURETIC [facility] Last Admin: 04/11/18 06:38 Dose: 12.5 mg Hydrocortisone Sodium Succinate (Solu-Cortef) 100 mg IVPUSH Q8H [facility] Stop: 04/11/18 09:00 Last Admin: 04/11/18 06:38 Dose: 100 mg Hydromorphone HCl (Dilaudid) 0.5 mg IVPUSH Q2H PRN PRN Reason: Pain (severe 7-10) Diltiazem HCl 125 mg/ Sodium (Chloride) 125 mls @ 10 mls/hr IV TITRATE [facility]; Protocol Last Titration: 04/07/18 09:10 Dose: 0 mg/hr, 0 mls/hr Promethazine HCl 12.5 mg/ (Sodium Chloride) 50.5 mls @ 100 mls/hr IV Q6H PRN PRN Reason: Nausea/Vomiting Sodium Chloride (Normal Saline) 1,000 mls @ 125 mls/hr IV ASDIRECTED [facility] Last Admin: 04/09/18 03:40 Dose: 125 mls/hr Ibuprofen (Motrin) 600 mg PO Q6H PRN PRN Reason: Pain (moderate 4-6) Last Admin: 04/10/18 20:03 Dose: 600 mg Ketorolac Tromethamine (Toradol) 30 mg IVPUSH Q6H PRN PRN Reason: Pain (moderate 4-6) Lisinopril (Prinivil) 20 mg PO DAILY [facility] Last Admin: 04/10/18 20:20 Dose: 20 mg Lorazepam (Ativan) 2 mg IVPUSH Q4H PRN PRN Reason: Seizures Lorazepam (Ativan) 1 mg IV Q6H PRN PRN Reason: Anxiety Last Admin: 04/08/18 08:38 Dose: 1 mg Magnesium Sulfate (Pharmacy To Dose - Magnesium Replacement) 0 dose .XX ASDIRECTED PRN PRN Reason: RX TO WATCH MAG Methimazole (Methimazole) 10 mg PO Q8H [facility] Last Admin: 04/11/18 06:38 Dose: 10 mg Metoprolol Tartrate (Lopressor) 5 mg IVPUSH Q4H PRN PRN Reason: Tachycardia Metoprolol Tartrate (Lopressor) 25 mg PO Q12H [facility] Last Admin: 04/10/18 20:20 Dose: 25 mg Miscellaneous Information (Remove Patch) 1 ea TRDERM DAILY [facility] Last Admin: 04/10/18 09:29 Dose: 1 ea Nicotine (Habitrol) 21 mg TRDERM DAILY PRN PRN Reason: Nicotine Dependence Last Admin: 04/10/18 09:25 Dose: 21 mg Nicotine Polacrilex (Nicorelief) 4 mg CHEW Q4H PRN PRN Reason: Nicotine dependence Last Admin: 04/10/18 13:46 Dose: 4 mg Ondansetron HCl (Zofran) 4 mg IV Q6H PRN PRN Reason: Nausea/Vomiting Polyethylene Glycol (Miralax) 17 gm PO DAILY PRN PRN Reason: Constipation Potassium Chloride (Pharmacy To Dose - Potassium Replacement) 0 dose .XX ASDIRECTED PRN PRN Reason: RX TO WATCH K Quetiapine Fumarate (Seroquel) 50 mg PO BEDTIME [facility] Last Admin: 04/10/18 20:20 Dose: 50 mg Senna/Docusate Sodium (Senna Plus) 1 tab PO BID PRN PRN Reason: Constipation Sertraline HCl (Zoloft) 50 mg PO DAILY [facility] Last Admin: 04/10/18 09:26 Dose: 50 mg Sodium Chloride (Saline Flush) 10 ml FLUSH ASDIRECTED PRN PRN Reason: Keep Vein Open Last Admin: 04/10/18 20:33 Dose: 10 ml Tramadol HCl (Ultram) 100 mg PO Q6H PRN PRN Reason: Pain (moderate 4-6) Last Admin: 04/08/18 08:19 Dose: 100 mg Discontinued Medications Aspirin (Aspirin) 324 mg PO ONETIME ONE Stop: 04/07/18 05:47 Last Admin: 04/07/18 05:56 Dose: 324 mg Cholestyramine Resin (Cholestyramine Packet) 4 gm PO BID [facility] Stop: 04/09/18 09:01 Last Admin: 04/09/18 09:33 Dose: 4 gm Diltiazem HCl (Cardizem) 60 mg PO ONETIME ONE Stop: 04/07/18 02:22 Last Admin: 04/07/18 02:24 Dose: 60 mg Diltiazem HCl (Cardizem) 10 mg IVPUSH ONETIME ONE Stop: 04/07/18 03:07 Last Admin: 04/07/18 03:16 Dose: 10 mg Enoxaparin Sodium (Lovenox) 40 mg SUBCUT Q24H [facility] Last Admin: 04/07/18 12:02 Dose: Not Given Famotidine (Pepcid) 20 mg PO BID [facility] Stop: 04/08/18 21:01 Last Admin: 04/08/18 21:27 Dose: 20 mg Sodium Chloride (Normal Saline) 1,000 mls @ 1,000 mls/hr IV ONETIME ONE Stop: 04/07/18 04:05 Last Admin: 04/07/18 03:16 Dose: 1,000 mls/hr Magnesium Sulfate 2 gm/ Premix 50 mls @ 25 mls/hr IV ONETIME ONE Stop: 04/09/18 10:29 Last Admin: 04/09/18 08:46 Dose: 25 mls/hr Ketorolac Tromethamine (Toradol) 60 mg IM Q6H PRN PRN Reason: Pain (moderate 4-6) Ketorolac Tromethamine (Toradol) 30 mg IM Q6H PRN PRN Reason: Pain (moderate 4-6) Lorazepam (Ativan) 0.5 mg PO ONETIME ONE Stop: 04/07/18 02:21 Last Admin: 04/07/18 02:24 Dose: 0.5 mg Potassium Chloride (Klor-Con M20) 40 meq PO Q4H [facility] Stop: 04/10/18 12:31 Last Admin: 04/10/18 12:21 Dose: 40 meq Prednisone (Prednisone) 60 mg PO ONETIME ONE Stop: 04/07/18 12:05 Last Admin: 04/07/18 12:47 Dose: 60 mg Prednisone (Prednisone) 40 mg PO WITHBREAKFAST [facility] Stop: 04/11/18 07:01 Propylthiouracil (Propylthiouracil) 200 mg PO Q6H [facility] Last Admin: 04/07/18 12:53 Dose: Not Given Quetiapine Fumarate (Seroquel) 25 mg PO DAILY [facility] Last Admin: 04/08/18 12:30 Dose: Not Given - Exam Quality Assessment: Reports: DVT Prophylaxis General: Reports: Alert, Oriented, Cooperative, No Acute Distress HEENT: Reports: Pupils Equal, Pupils Reactive, EOMI, Mucous Membr. Moist/[place] Neck: Reports: Supple, Trachea Midline Lungs: Reports: Clear to Auscultation, Normal Respiratory Effort Cardiovascular: Reports: Regular Rate, Regular Rhythm GI/Abdominal Exam: Normal Bowel Sounds, Soft, Non-Tender, No Distention, No Abnormal Bruit (Male) Exam: Deferred Rectal (Males) Exam: Deferred Back Exam: Reports: Normal Inspection, Full Range of Motion Extremities: Normal Inspection, Normal Range of Motion, Non-Tender, No Pedal Edema, Normal Capillary Refill Skin: Reports: Warm, Dry, Intact Neurological: Reports: No New Focal Deficit Psy/Mental Status: Reports: Alert, Normal Affect, Normal Mood. Denies: Withdrawal Symptoms <Clarita Alva T - Last Filed: 04/11/18 11:23> Discharge Summary - Hospital Course Free Text/Narrative:: Patient was primarily admitted for medical evaluation of heart palpitations, tremors, anxiety, and probable seizure like activity and was diagnosed with substance abuse and new onset of atrial fibrillation w/ rvr which we felt was due to methamphetamine abuse along with thyrotoxicosis. He was found with heart rates in the 140s upon presentation in ED. His UDS was positive for Ampheth/ Marijuana and his thyroid panel was significantly abnormal. However he received appropriate treatment to improve his symptoms. Once his rate was controlled, he was switched to oral BB and immediately converted to sinus rhythm. As for this overt hyperthyroidism, he was found to have a possible 1.5 cm nodule on thyroid ultrasound. He did get methimazole, steroid and cholestyramine for acute management. He was released with a prescription of Methimazole with recommendation of a repeat CBC after discharge. His hospital course was uncomplicated. SA and Tele-psych were consulted for further evaluation for his substance abuse. Dr. Bradley resumed his Zoloft at a lower dose and Alan Mims recommended inpatient treatment to [facility]. Patient was amenable to the discharge care plan and he left today with transportation provided by the local law enforcement. - Discharge Diagnosis/Problem(s) (1) Hyperthyroidism determined by thyroid function test SNOMED Code(s): 07477115 ICD Code: E05.90 - THYROTOXICOSIS, UNSP WITHOUT THYROTOXIC CRISIS OR STORM; R94.6 - ABNORMAL RESULTS OF THYROID FUNCTION STUDIES Status: Acute (2) Thyroid nodule, ectopic, toxic, with crisis SNOMED Code(s): 327731353 ICD Code: E05.31 - THYROTXCOSIS FROM ECTOPIC THYROID TISSUE W THYROTOXIC CRISIS Status: Resolved (3) Atrial fibrillation with RVR SNOMED Code(s): 472138994778686 ICD Code: I48.91 - UNSPECIFIED ATRIAL FIBRILLATION Status: Resolved (4) Methamphetamine intoxication SNOMED Code(s): 48566817814696461 ICD Code: F15.929 - OTHER STIMULANT USE, UNSP WITH INTOXICATION, UNSPECIFIED Status: Acute (5) Dental caries SNOMED Code(s): 99262089 ICD Code: K02.9 - DENTAL CARIES, UNSPECIFIED Status: Acute (6) Drug abuse SNOMED Code(s): 03248963 ICD Code: F19.10 - OTHER PSYCHOACTIVE SUBSTANCE ABUSE, UNCOMPLICATED Status : Chronic (7) Seizure SNOMED Code(s): 90179392 ICD Code: R56.9 - UNSPECIFIED CONVULSIONS Status: Resolved - Patient Summary/Data Operative Procedure(s) Performed: None Complications: None Consults: Consultations 04/07/18 07:28 Consult to Case Management/Transportation Solutions Manager [CONS] Routine Consult to Spiritual Care [CONS] Routine 04/07/18 07:32 Consult for Substance Abuse [CONS] Routine 04/07/18 07:33 Consult to Physician [CONS] Routine Labs Pending at D/C: None Recommended Follow-up Testing/Procedures: U/S in 6 months and CBC after discharge - Discharge Summary/Plan Comment Discharge Summary/Plan Comment: Transfer to [facility] in [place] Offered practical counseling on smoking cigarettes. He was counseled about the dangers of smoking and associated health risks. At this time he is not ready to quit but receptive to the idea of smoking cessation. Patient was provided reading materials or brochures to help when to quit smoking. He was advised to set a specific date, call the Quit line and follow up with PCP when he is ready to quit. - Review of Systems Systems Review Comment: No overnight or acute issues. He is doing relatively well. He has no complaints. He is ready to go for rehab this AM. - Patient Data Vitals - Most Recent: Last Vital Signs Temp 37.0 C 04/11/18 08:00 Pulse 81 04/11/18 08:03 Resp 16 04/11/18 08:00 BP 118/83 04/11/18 08:04 Pulse Ox 98 04/11/18 08:00 I&O - Last 24 hours: Intake & Output 04/10/18 04/11/18 04/11/18 22:59 06:59 14:59 Intake Total 800 1000 Balance 800 1000 Lab Results - Last 24 hrs: Laboratory Results - last 24 hr 04/08/18 04/08/18 04/08/18 Range/Units 06:25 06:25 06:25 T4-Binding Globulin 12 L (13-39) ug/mL Thyroid Stim Immunoglob 2.45 H (0.00-0.55) IU/L Thyroid Peroxidase Ab 13 (0-34) IU/mL Med Orders - Current: Current Medications Hydrocodone Bitart/Acetaminophen ([place] 325-5 Mg) 1 tab PO Q4H PRN PRN Reason: Pain Last Admin: 04/10/18 20:25 Dose: 1 tab Albuterol/Ipratropium (Duoneb 3.0-0.5 Mg/3 Ml) 3 ml NEB Q4H PRN PRN Reason: Shortness Of Breath/wheezing Bisacodyl (Dulcolax) 5 mg PO DAILY PRN PRN Reason: Constipation Docusate Sodium (Colace) 100 mg PO BID PRN PRN Reason: Constipation Enoxaparin Sodium (Lovenox) 40 mg SUBCUT Q24H [facility] Last Admin: 04/10/18 12:21 Dose: 40 mg Hydralazine HCl (Apresoline) 20 mg IVPUSH Q4H PRN PRN Reason: Hypertension Last Admin: 04/09/18 04:47 Dose: 20 mg Hydrochlorothiazide (Hydrochlorothiazide) 12.5 mg PO BIDDIURETIC [facility] Last Admin: 04/11/18 06:38 Dose: 12.5 mg Hydromorphone HCl (Dilaudid) 0.5 mg IVPUSH Q2H PRN PRN Reason: Pain (severe 7-10) Diltiazem HCl 125 mg/ Sodium (Chloride) 125 mls @ 10 mls/hr IV TITRATE [facility]; Protocol Last Titration: 04/07/18 09:10 Dose: 0 mg/hr, 0 mls/hr Promethazine HCl 12.5 mg/ (Sodium Chloride) 50.5 mls @ 100 mls/hr IV Q6H PRN PRN Reason: Nausea/Vomiting Sodium Chloride (Normal Saline) 1,000 mls @ 125 mls/hr IV ASDIRECTED [facility] Last Admin: 04/09/18 03:40 Dose: 125 mls/hr Ibuprofen (Motrin) 600 mg PO Q6H PRN PRN Reason: Pain (moderate 4-6) Last Admin: 04/10/18 20:03 Dose: 600 mg Ketorolac Tromethamine (Toradol) 30 mg IVPUSH Q6H PRN PRN Reason: Pain (moderate 4-6) Lisinopril (Prinivil) 20 mg PO DAILY [facility] Last Admin: 04/11/18 08:04 Dose: 20 mg Lorazepam (Ativan) 2 mg IVPUSH Q4H PRN PRN Reason: Seizures Lorazepam (Ativan) 1 mg IV Q6H PRN PRN Reason: Anxiety Last Admin: 04/11/18 08:23 Dose: 1 mg Magnesium Sulfate (Pharmacy To Dose - Magnesium Replacement) 0 dose .XX ASDIRECTED PRN PRN Reason: RX TO WATCH MAG Methimazole (Methimazole) 10 mg PO Q8H [facility] Last Admin: 04/11/18 06:38 Dose: 10 mg Metoprolol Tartrate (Lopressor) 5 mg IVPUSH Q4H PRN PRN Reason: Tachycardia Metoprolol Tartrate (Lopressor) 25 mg PO Q12H [facility] Last Admin: 04/11/18 08:03 Dose: 25 mg Miscellaneous Information (Remove Patch) 1 ea TRDERM DAILY [facility] Last Admin: 04/10/18 09:29 Dose: 1 ea Nicotine (Habitrol) 21 mg TRDERM DAILY PRN PRN Reason: Nicotine Dependence Last Admin: 04/10/18 09:25 Dose: 21 mg Nicotine Polacrilex (Nicorelief) 4 mg CHEW Q4H PRN PRN Reason: Nicotine dependence Last Admin: 04/10/18 13:46 Dose: 4 mg Ondansetron HCl (Zofran) 4 mg IV Q6H PRN PRN Reason: Nausea/Vomiting Polyethylene Glycol (Miralax) 17 gm PO DAILY PRN PRN Reason: Constipation Potassium Chloride (Pharmacy To Dose - Potassium Replacement) 0 dose .XX ASDIRECTED PRN PRN Reason: RX TO WATCH K Quetiapine Fumarate (Seroquel) 50 mg PO BEDTIME [facility] Last Admin: 04/10/18 20:20 Dose: 50 mg Senna/Docusate Sodium (Senna Plus) 1 tab PO BID PRN PRN Reason: Constipation Sertraline HCl (Zoloft) 50 mg PO DAILY [facility] Last Admin: 04/11/18 08:03 Dose: 50 mg Sodium Chloride (Saline Flush) 10 ml FLUSH ASDIRECTED PRN PRN Reason: Keep Vein Open Last Admin: 04/10/18 20:33 Dose: 10 ml Tramadol HCl (Ultram) 100 mg PO Q6H PRN PRN Reason: Pain (moderate 4-6) Last Admin: 04/08/18 08:19 Dose: 100 mg Discontinued Medications Aspirin (Aspirin) 324 mg PO ONETIME ONE Stop: 04/07/18 05:47 Last Admin: 04/07/18 05:56 Dose: 324 mg Cholestyramine Resin (Cholestyramine Packet) 4 gm PO BID [facility] Stop: 04/09/18 09:01 Last Admin: 04/09/18 09:33 Dose: 4 gm Diltiazem HCl (Cardizem) 60 mg PO ONETIME ONE Stop: 04/07/18 02:22 Last Admin: 04/07/18 02:24 Dose: 60 mg Diltiazem HCl (Cardizem) 10 mg IVPUSH ONETIME ONE Stop: 04/07/18 03:07 Last Admin: 04/07/18 03:16 Dose: 10 mg Enoxaparin Sodium (Lovenox) 40 mg SUBCUT Q24H [facility] Last Admin: 04/07/18 12:02 Dose: Not Given Famotidine (Pepcid) 20 mg PO BID [facility] Stop: 04/08/18 21:01 Last Admin: 04/08/18 21:27 Dose: 20 mg Hydrocortisone Sodium Succinate (Solu-Cortef) 100 mg IVPUSH Q8H [facility] Stop: 04/11/18 09:00 Last Admin: 04/11/18 06:38 Dose: 100 mg Sodium Chloride (Normal Saline) 1,000 mls @ 1,000 mls/hr IV ONETIME ONE Stop: 04/07/18 04:05 Last Admin: 04/07/18 03:16 Dose: 1,000 mls/hr Magnesium Sulfate 2 gm/ Premix 50 mls @ 25 mls/hr IV ONETIME ONE Stop: 04/09/18 10:29 Last Admin: 04/09/18 08:46 Dose: 25 mls/hr Ketorolac Tromethamine (Toradol) 60 mg IM Q6H PRN PRN Reason: Pain (moderate 4-6) Ketorolac Tromethamine (Toradol) 30 mg IM Q6H PRN PRN Reason: Pain (moderate 4-6) Lorazepam (Ativan) 0.5 mg PO ONETIME ONE Stop: 04/07/18 02:21 Last Admin: 04/07/18 02:24 Dose: 0.5 mg Potassium Chloride (Klor-Con M20) 40 meq PO Q4H [facility] Stop: 04/10/18 12:31 Last Admin: 04/10/18 12:21 Dose: 40 meq Prednisone (Prednisone) 60 mg PO ONETIME ONE Stop: 04/07/18 12:05 Last Admin: 04/07/18 12:47 Dose: 60 mg Prednisone (Prednisone) 40 mg PO WITHBREAKFAST [facility] Stop: 04/11/18 07:01 Propylthiouracil (Propylthiouracil) 200 mg PO Q6H [facility] Last Admin: 04/07/18 12:53 Dose: Not Given Quetiapine Fumarate (Seroquel) 25 mg PO DAILY [facility] Last Admin: 04/08/18 12:30 Dose: Not Given
[2018-04-11] MEDS: Metoprolol Tartrate 25 MG Tab PO SCH (08:03)
[2018-04-11] MEDS: Sertraline 50 MG Tab PO SCH (08:03)
[2018-04-11] MEDS: Lisinopril 20 MG Tab PO SCH (08:04)
[2018-04-11 08:05] VITALS: BP 118/83
[2018-04-11] MEDS: LORazepam 2 MG/ML SDV IV PRN (08:23)
== END 2018-04-11 08:45 | DRG 812 ==
LOC: JD.ED 00:52 → JD.ICU 06:43
PROVIDERS: ADMIT Internal Medicine; ATTEND Internal Medicine
DX: T43.621A Poisoning by amphetamines, accidental (unintentional), initial encounter (principal); R56.9 Unspecified convulsions; E83.42 Hypomagnesemia; I48.91 Unspecified atrial fibrillation; F41.9 Anxiety disorder, unspecified; F32.9 Major depressive disorder, single episode, unspecified; I10 Essential (primary) hypertension; K02.9 Dental caries, unspecified; E05.10 Thyrotoxicosis with toxic single thyroid nodule without thyrotoxic crisis or storm; F17.210 Nicotine dependence, cigarettes, uncomplicated; F12.20 Cannabis dependence, uncomplicated; F15.229 Other stimulant dependence with intoxication, unspecified; Z79.899 Other long term (current) drug therapy; Z87.442 Personal history of urinary calculi
CPT/HCPCS: 36415; 76536-26; 76536-50; 80048; 80053; 80306; 83520; 83735; 84439; 84442; 84443; 84445; 84479; 84484; 85025; 86376; 93005; 93010; 93306; 96365; 96366; 96376; 99284; 99285-25; A9270-GY; G0480; J0360; J1650; J1720; J2060; J3475; J3490; J7030; J7040

== ENCOUNTER 2018-05-08 23:23 | Emergency (ER) | payer BC ==
[2018-05-08 23:36] VITALS: BP 111/59
--- NOTE | 2018-05-08 23:49 | EDM.PDOC ---
ED HPI GENERAL MEDICAL PROBLEM - General Chief Complaint: Syncope Stated Complaint: SYNCOPE Time Seen by Provider: 05/08/18 23:37 Source of Information: Reports: Patient, Old Records (ED + admission records ), RN Notes Reviewed History Limitations: Reports: No Limitations - History of Present Illness INITIAL COMMENTS - FREE TEXT/NARRATIVE: The patient states that he was talking and eating at the [facility] around 23:00 this evening, when he developed tunnel vision, a humming sensation in his ears, and lightheadedness. He eased himself to the floor, where he states that he did not completely pass out - he was aware of people talking around him - but that he nearly passed out. He states that his symptoms persisted for about 10 minutes. He states that he had similar symptoms when he had atrial fibrillation in March 2018, although at that time, he also had palpitations, which he can't say that he noticed tonight, although he states that he was preoccupied with the humming sensation in his ears. Medical records indicate that the patient was seen in this ED on 04/07/2018. He was found to be in atrial fibrillation, thought secondary to his injecting methamphetamine. He was started on a Cardizem drip and admitted to this hospital through 04/11/2018, at which time he was transferred to the [facility] in [place] for drug treatment, where, he states, he stayed for not quite 2 weeks. He states that when he was discharged, he has been living at the [facility], although he gets passes for 2-3 hours every night to see his girlfriend. The patient states that he last injected methamphetamine 30 days ago, although he admits that he smoked marijuana earlier tonight. No recent illnesses. The patient's PCP is Dr. Tremaine Aguilar. The patient states that he last saw Dr. Aguilar this past , 05/02/2018, and that he has an appointment to see him again tomorrow. Head Pain Score (Numeric/FACES): 8 - Related Data Allergies Allergy/AdvReac Type Severity Reaction Status Date / Time No Known Allergies Allergy Verified 05/08/18 23:36 Home Meds: Home Meds methIMAzole [Methimazole] 10 mg PO Q8H #90 tablet 04/09/18 [Rx] Lisinopril [Prinivil] 20 mg PO DAILY #30 tablet 04/10/18 [Rx] Amoxicillin 500 mg PO TID 05/08/18 [History] Melatonin/Pyridoxine HCl (B6) [Melatonin 3 mg Tablet] 3 mg PO BEDTIME 05/08/18 [ History] Metoprolol Tartrate [Lopressor] 25 mg PO DAILY 05/08/18 [History] Sertraline [Zoloft] 100 mg PO DAILY 05/08/18 [History] clonazePAM [Klonopin] 1 mg PO TID PRN 05/08/18 [History] hydroCHLOROthiazide [Hydrochlorothiazide] 12.5 mg PO DAILY 05/08/18 [History] Past Medical History Cardiovascular History: Reports: Afib (paroxysmal) Genitourinary History: Reports: Renal Calculus Psychiatric History: Reports: Addiction (methamphetamine), Anxiety, Depression Endocrine/Metabolic History: Reports: Hyperthyroidism - Past Surgical History HEENT Surgical History: Reports: Adenoidectomy, Tonsillectomy Musculoskeletal Surgical History: Reports: Arthroscopic Procedure (left knee) Social & Family History - Family History Family Medical History: Noncontributory - Tobacco Use Smoking Status *Q: Current Every Day Smoker Years of Tobacco use: 11 Packs/Tins Daily: 1 Packs/Tins Daily Comment: Down from 2 ppd - Caffeine Use Caffeine Use: Reports: None - Alcohol Use Alcohol Use History: Yes Alcohol Use Frequency: Rarely - Recreational Drug Use Recreational Drug Use: Yes Drug Use in Last 12 Months: Yes Recreational Drug Type: Reports: Ecstasy (tried twice), LSD (Acid) (tried once) , Marijuana/Hashish (smokes daily), Methamphetamine (last injected 04/07/2018), Psilocybin (Mushrooms), Other (see below) (Has abused guaifenesin in the past) - Living Situation & Occupation Living situation: Reports: Single, with Family (Parents) Occupation: Unemployed ED ROS GENERAL - Review of Systems Review Of Systems: ROS reveals no pertinent complaints other than HPI. ED EXAM, GENERAL - Physical Exam Exam: See Below Exam Limited By: No Limitations General Appearance: Alert, WD/WN, No Apparent Distress Eye Exam: Bilateral Eye: EOMI, Normal Inspection Ears: Normal External Exam, Hearing Grossly Normal Nose: Normal Inspection Throat/Mouth: Normal Inspection, Normal Lips, Normal Voice, No Airway Compromise Head: Atraumatic, Normocephalic Neck: Normal Inspection, Full Range of Motion Respiratory/Chest: No Respiratory Distress, Lungs Clear, Normal Breath Sounds, No Accessory Muscle Use Cardiovascular: Normal Peripheral Pulses, Regular Rate, Rhythm, No Edema, No Gallop, No JVD, No Murmur, No Rub Peripheral Pulses: 4+: Radial (L), Radial (R) GI/Abdominal: Normal Bowel Sounds, Soft, Non-Tender, No Organomegaly, No Distention, No Abnormal Bruit, No Mass (Male) Exam: Deferred Rectal (Males) Exam: Deferred Back Exam: Normal Inspection, Full Range of Motion, NT Extremities: Normal Inspection, Normal Range of Motion, No Pedal Edema, Normal Capillary Refill Neurological: Alert, Oriented, CN II-XII Intact, Normal Cognition, No Motor/ Sensory Deficits Psychiatric: Normal Affect Skin Exam: Warm, Dry, Intact, Normal Color, No Rash EKG INTERPRETATION EKG Date: 05/08/18 Time: 23:55 Rhythm: NSR Rate (Beats/Min): 85 Harbinger: RAD-Right Harbinger Deviation P-Wave: Present QRS: Normal (? early transition. Likely RVH.) ST-T: Normal QT: Normal Comparison: Change From Previous EKG (ECG 04/07/[address] depression and T- wave inversion in anterior leads) Course - Vital Signs Last Recorded V/S: Last Vital Signs Temp 36.6 C 05/08/18 23:30 Pulse 88 05/08/18 23:30 Resp 20 05/08/18 23:30 BP 111/59 L 05/08/18 23:30 Pulse Ox 99 05/08/18 23:30 Orthostatic Blood Pressure [ 110/60 Standing] Orthostatic Blood Pressure [ 115/65 Sitting] Orthostatic Blood Pressure [ 98/43 Supine] - Orders/Labs/Meds Orders: Active Orders 24 hr Category Date Time Status EKG Documentation Completion [RC] STAT Care 05/08/18 23:47 Active Orthostatic Vital Signs [RC] STAT Care 05/08/18 23:46 Active Ang Chest [CT] Stat Exams 05/09/18 00:44 Taken Sodium Chloride 0.9% [Normal Saline] 1,000 ml Med 05/09/18 00:45 Active IV ASDIRECTED Medication Orders Sodium Chloride (Normal Saline) 1,000 mls @ 150 mls/hr IV ASDIRECTED CORDELL Last Admin: 05/09/18 00:47 Dose: 150 mls/hr Labs: Laboratory Tests 05/09/18 05/09/18 05/09/18 Range/Units 00:00 00:00 00:00 WBC 6.01 (4.23-9.07) K/mm3 RBC 4.93 (4.63-6.08) M/mm3 Hgb 13.9 (13.7-17.5) gm/L Hct 40.9 (40.1-51.0) % MCV 83.0 (79.0-92.2) fl MCH 28.2 (25.7-32.2) pg MCHC 34.0 (32.2-35.5) g/dl RDW Std Deviation 39.2 (35.1-43.9) fL Plt Count 238 (163-337) K/mm3 MPV 9.3 L (9.4-12.3) fl Neutrophils % (Manual) 46 (40-60) % Band Neutrophils % 0 (0-10) % Lymphocytes % (Manual) 43 H (20-40) % Atypical Lymphs % 0 % Monocytes % (Manual) 8 (2-10) % Eosinophils % (Manual) 2 (0.8-7.0) % Basophils % (Manual) 1 (0.2-1.2) Platelet Estimate Adequate Plt Morphology Comment Normal RBC Morph Comment Normal D-Dimer, Quantitative 2.20 H (0.19-0.50) mg/L Sodium 139 (136-145) mEq/L Potassium 3.7 (3.5-5.1) mEq/L Chloride 101 (98-107) mEq/L Carbon Dioxide 28 (21-32) mEq/L Anion Gap 13.7 (5-15) BUN 16 (7-18) mg/dL Creatinine 0.9 (0.7-1.3) mg/dL Est Cr Clr Drug Dosing 132.82 mL/min Estimated GFR (MDRD) > 60 (>60) mL/min BUN/Creatinine Ratio 17.8 (14-18) Glucose 109 H (74-106) mg/dL Calcium 8.6 (8.5-10.1) mg/dL Magnesium 1.9 (1.8-2.4) mg/dl Total Bilirubin 0.3 (0.2-1.0) mg/dL AST 22 (15-37) U/L ALT 47 (16-63) U/L Alkaline Phosphatase 139 H (46-116) U/L Total Protein 7.1 (6.4-8.2) g/dl Albumin 3.6 (3.4-5.0) g/dl Globulin 3.5 gm/dL Albumin/Globulin Ratio 1.0 (1-2) Urine Opiates Screen (WUEMQX=142) Ur Buprenorphine Scrn (CUTOFF=10) Ur Oxycodone Screen (MWT4UA=542) Urine Methadone Screen (EVU3KZ=415) Ur Propoxyphene Screen (OSNSNP=297) Ur Barbiturates Screen (ZGSHRX=848) Ur Tricyclics Screen (HLBKBT=432) Ur Phencyclidine Scrn (CUTOFF=25) Ur Amphetamine Screen (EKIJJZ=233) U Methamphetamines Scrn (WZYMFN=775) U Benzodiazepines Scrn (MSIVAE=822) U Cocaine Metab Screen (UFAANK=021) U Marijuana (THC) Screen (CUTOFF=50) 05/09/18 Range/Units 00:04 WBC (4.23-9.07) K/mm3 RBC (4.63-6.08) M/mm3 Hgb (13.7-17.5) gm/L Hct (40.1-51.0) % MCV (79.0-92.2) fl MCH (25.7-32.2) pg MCHC (32.2-35.5) g/dl RDW Std Deviation (35.1-43.9) fL Plt Count (163-337) K/mm3 MPV (9.4-12.3) fl Neutrophils % (Manual) (40-60) % Band Neutrophils % (0-10) % Lymphocytes % (Manual) (20-40) % Atypical Lymphs % % Monocytes % (Manual) (2-10) % Eosinophils % (Manual) (0.8-7.0) % Basophils % (Manual) (0.2-1.2) Platelet Estimate Plt Morphology Comment RBC Morph Comment D-Dimer, Quantitative (0.19-0.50) mg/L Sodium (136-145) mEq/L Potassium (3.5-5.1) mEq/L Chloride (98-107) mEq/L Carbon Dioxide (21-32) mEq/L Anion Gap (5-15) BUN (7-18) mg/dL Creatinine (0.7-1.3) mg/dL Est Cr Clr Drug Dosing mL/min Estimated GFR (MDRD) (>60) mL/min BUN/Creatinine Ratio (14-18) Glucose (74-106) mg/dL Calcium (8.5-10.1) mg/dL Magnesium (1.8-2.4) mg/dl Total Bilirubin (0.2-1.0) mg/dL AST (15-37) U/L ALT (16-63) U/L Alkaline Phosphatase (46-116) U/L Total Protein (6.4-8.2) g/dl Albumin (3.4-5.0) g/dl Globulin gm/dL Albumin/Globulin Ratio (1-2) Urine Opiates Screen Negative (OOJJSE=744) Ur Buprenorphine Scrn Negative (CUTOFF=10) Ur Oxycodone Screen Negative (MNT0CQ=300) Urine Methadone Screen Negative (ZAK7KY=768) Ur Propoxyphene Screen Negative (NWSRKT=160) Ur Barbiturates Screen Negative (ZRDMKS=634) Ur Tricyclics Screen Negative (UNYIXR=110) Ur Phencyclidine Scrn Negative (CUTOFF=25) Ur Amphetamine Screen Negative (BYZBPQ=304) U Methamphetamines Scrn Negative (IDGGCM=766) U Benzodiazepines Scrn Negative (HYVBTW=000) U Cocaine Metab Screen Negative (NLKLQT=884) U Marijuana (THC) Screen Presumptive positive H (CUTOFF=50) Meds: Medications Generic Name Dose Route Start Last Admin Trade Name Freq PRN Reason Stop Dose Admin Sodium Chloride 1,000 mls @ 150 mls/hr 05/09/18 00:45 05/09/18 00:47 Normal Saline IV 150 mls/hr ASDIRECTED CORDELL Administration Discontinued Medications Generic Name Dose Route Start Last Admin Trade Name Freq PRN Reason Stop Dose Admin Sodium Chloride 100 mls @ 4 mls/sec 05/09/18 00:58 05/09/18 01:39 Normal Saline IV 05/09/18 00:59 4 mls/sec ONETIME ONE Administration Iopamidol 100 ml 05/09/18 00:58 05/09/18 01:38 Isovue-370 (76%) IVPUSH 05/09/18 00:59 100 ml ONETIME ONE Administration - Re-Assessments/Exams Free Text/Narrative Re-Assessment/Exam: 05/08/18 23:48 The cause of the patient's near syncopal episode is unclear. It is possible that he had a brief episode of atrial fibrillation, now resolved, or it may be that he is orthostatic, or has some electrode abnormality. Have ordered an ECG, orthostatics, and blood work. 05/08/18 23:53 The patient is not orthostatic. 05/09/18 00:44 The patient's D-dimer has returned significantly elevated at 2.20. Test results discussed with the patient. The patient's workup thus far is unremarkable, with the exception of his elevated D-dimer. I recommended that we proceed with a CT angiogram of the chest to make sure that he has not suffered a PE as the cause of his near-syncopal episode. The patient has agreed. An IV will be placed, and he will be given IV fluid. 05/09/18 01:43 CT angiogram of the chest is read by [facility] as "No acute fidings." 05/09/18 01:45 Test results discussed with the patient. As above, sandip's workup is unremarkable and does not explain the cause of his near-syncopal episode. It may be that he had an episode of atrial fibrillation. For sandip's purposes, I do not have any recommendations for him, however, if this happens again, I would like him to follow up with his PCP, Dr. Aguilar, who may want to have the patient wear a Holter monitor, or refer him to Cardiology. Departure - Departure Time of Disposition: 01:46 Disposition: Home, Self-Care 01 Condition: Good Clinical Impression: Near syncope - Discharge Information *PRESCRIPTION DRUG MONITORING PROGRAM REVIEWED*: Not Applicable *COPY OF PRESCRIPTION DRUG MONITORING REPORT IN PATIENT YESENIA: Not Applicable Referrals: Tremaine Aguilar Jr, MD [Primary Care Provider] - Forms: ED Department Discharge Additional Instructions: You were seen in the emergency room after nearly passing out. Workup in the ER included blood work, a urine drug screen, positional blood pressure checks, a CT angiogram of your chest, and an ECG. Your entire workup was unremarkable, and does not explain the cause of your symptoms. You are not anemic. No electrolyte abnormalities were found. You are not dehydrated. You do not have a blood clot in your lungs. It is possible that you suffered an episode of atrial fibrillation, although we found no evidence of that once you were in the ER. If your symptoms recur, we recommend that you follow-up with your PCP, Dr. Tremaine Aguilar, for further evaluation, that may include a Holter monitor or referral to a Associate Genetics Professor. If any other problems, please do not hesitate to return to the ER. - My Orders Last 24 Hours: My Active Orders 05/08/18 23:46 Orthostatic Vital Signs [RC] STAT 05/08/18 23:47 EKG Documentation Completion [RC] STAT 05/09/18 00:44 Ang Chest [CT] Stat 05/09/18 00:45 Sodium Chloride 0.9% [Normal Saline] 1,000 ml IV ASDIRECTED - Assessment/Plan Last 24 Hours: My Active Orders 05/08/18 23:46 Orthostatic Vital Signs [RC] STAT 05/08/18 23:47 EKG Documentation Completion [RC] STAT 05/09/18 00:44 Ang Chest [CT] Stat 05/09/18 00:45 Sodium Chloride 0.9% [Normal Saline] 1,000 ml IV ASDIRECTED
[2018-05-09] MEDS ORDERED: Sodium Chloride 0.9% 1,000 ML IV SCH (00:45)
[2018-05-09] MEDS ORDERED: Sodium Chloride 0.9% 100 ML IV ONE (00:58)
[2018-05-09] MEDS ORDERED: Iopamidol 755 Mg/ML 100 ML Bottle IVPUSH ONE (00:58)
--- NOTE | 2018-05-09 06:45 | CT ---
CT chest Technique: Multiple axial sections through the chest were obtained. Intravenous contrast was utilized. Study has been performed as a pulmonary angiogram protocol. Findings: Pulmonary arteries are well opacified. No filling defects are seen to indicate pulmonary embolism. Soft tissue density is noted within the superior mediastinum compatible with normal thymic tissue. No mediastinal mass or adenopathy is seen. Hilar regions appear within normal limits. No axillary adenopathy is seen. Lungs are clear. No acute parenchymal change is seen. No pleural effusions or pneumothorax is seen. Bone window settings were reviewed which show no acute osseous abnormality. Impression: 1. No findings of pulmonary embolism. 2. Nothing acute seen on CT study of the chest. Diagnostic code #1 I agree with preliminary report from [facility], finalized on 05/09/18, 2:41 AM Central Time
== END 2018-05-09 01:57 | disposition home or self-care (01) ==
LOC: JD.ED 23:23
DX: R55 Syncope and collapse (principal); E05.90 Thyrotoxicosis, unspecified without thyrotoxic crisis or storm; I48.91 Unspecified atrial fibrillation; F17.210 Nicotine dependence, cigarettes, uncomplicated; F41.9 Anxiety disorder, unspecified; F32.9 Major depressive disorder, single episode, unspecified; Z79.899 Other long term (current) drug therapy
CPT/HCPCS: 36415; 71275; 80053; 80306; 83735; 85007; 85027; 85379; 93005; 96360; 99284; J7030; J7040; Q9967; 93010

== ENCOUNTER 2021-01-20 06:50 | Emergency (ER) | payer BC, OTHER ==
[2021-01-20 07:07] VITALS: PULSE 104
[2021-01-20] MEDS ORDERED: HYDROmorphone 1 MG/ML Syringe IM ONE (07:10)
[2021-01-20] MEDS ORDERED: Ketorolac 60 MG/2 ML SDV IM ONE (07:10)
--- NOTE | 2021-01-20 07:18 | EDM.PDOC ---
ED HPI GENERAL MEDICAL PROBLEM - General Chief Complaint: ENT Problem Stated Complaint: TOOTH PAIN Time Seen by Provider: 01/20/21 07:01 Source of Information: Reports: Patient History Limitations: Reports: No Limitations - History of Present Illness INITIAL COMMENTS - FREE TEXT/NARRATIVE: The patient presents with left upper dental pain. This has been going on for about a month. Today it is worse. He says he has fever and chills. He does see Dr Snider a dentist in town. He has multiple cavities and poor dentition. Onset: Gradual Duration: Week(s): Location: Reports: Face (Dental pain) Quality: Reports: Sharp Severity: Severe Improves with: Reports: None Worsens with: Reports: None Associated Symptoms: Reports: Fever/Chills. Denies: Chest Pain, Cough, Headaches, Nausea/Vomiting, Shortness of Breath Left Upper Tooth/Teeth Pain Score (Numeric/FACES): 8 - Related Data Allergies Allergy/AdvReac Type Severity Reaction Status Date / Time No Known Allergies Allergy Verified 01/20/21 07:07 Home Meds: Home Meds Hydrocodone/Acetaminophen [Hydrocodone-Acetamin 5-325 mg] 1 - 2 each PO Q6H PRN #15 tablet 01/20/21 [Rx] Penicillin V Potassium 500 mg PO Q6HR #40 tab 01/20/21 [Rx] Past Medical History Cardiovascular History: Reports: Afib (paroxysmal) Other Cardiovascular History: heart murmur as a child, not treated Genitourinary History: Reports: Renal Calculus Psychiatric History: Reports: Addiction (methamphetamine), Anxiety, Depression Endocrine/Metabolic History: Reports: Hyperthyroidism - Past Surgical History HEENT Surgical History: Reports: Adenoidectomy, Tonsillectomy Musculoskeletal Surgical History: Reports: Arthroscopic Procedure (left knee) Social & Family History - Family History Family Medical History: No Pertinent Family History - Caffeine Use Caffeine Use: Reports: None - Living Situation & Occupation Living situation: Reports: Single, with Family (Parents) Occupation: Unemployed ED ROS ENT - Review of Systems Review Of Systems: See Below Constitutional: Reports: Fever, Chills HEENT: Reports: Dental Pain Respiratory: Reports: No Symptoms Cardiovascular: Reports: No Symptoms Endocrine: Reports: No Symptoms GI/Abdominal: Reports: No Symptoms : Reports: No Symptoms Musculoskeletal: Reports: No Symptoms ED EXAM, ENT - Physical Exam Exam: See Below Exam Limited By: No Limitations General Appearance: Alert, No Apparent Distress Ears: Normal External Exam Nose: Normal Inspection Mouth/Throat: Other (Erythema and edema with pain upon palpation to the left upper jaw line at the canine tooth. He has broken teeth and multiple cavities.) Course - Vital Signs Last Recorded V/S: Last Vital Signs Temp 97.1 F 01/20/21 07:04 Pulse 104 H 01/20/21 07:04 Resp 16 01/20/21 07:04 BP 169/113 H 01/20/21 07:04 Pulse Ox 100 01/20/21 07:04 - Orders/Labs/Meds Orders: Active Orders 24 hr Category Date Time Status HYDROmorphone [Dilaudid] Med 01/20/21 07:10 Once 1 mg IM ONETIME ONE Ketorolac [Toradol] Med 01/20/21 07:10 Once 60 mg IM ONETIME ONE - Re-Assessments/Exams Free Text/Narrative Re-Assessment/Exam: 01/20/21 07:15 I ordered dilaudid 1mg IM and toradol 60mg IM. I will get him on some pen VK and something for pain. Departure - Departure Time of Disposition: 07:20 Disposition: Home, Self-Care 01 Condition: Good Clinical Impression: Dental caries, Dental abscess - Discharge Information *PRESCRIPTION DRUG MONITORING PROGRAM REVIEWED*: Not Applicable *COPY OF PRESCRIPTION DRUG MONITORING REPORT IN PATIENT YESENIA: Not Applicable Prescriptions: Hydrocodone/Acetaminophen [Hydrocodone-Acetamin 5-325 mg] 1 - 2 each PO Q6H PRN #15 tablet PRN Reason: Pain Penicillin V Potassium 500 mg PO Q6HR #40 tab Referrals: Tremaine Aguilar Jr, MD [Primary Care Provider] - Additional Instructions: Take the penicillin VK 4 times per day for 10 days. Take tylenol or motrin as needed for pain. If that does not work, try the hydrocodone. Follow up with your dentist within a week. Please return if you are worse. Sepsis Event Note (ED) - Evaluation Sepsis Screening Result: No Definite Risk - Focused Exam Vital Signs: Vital Signs Temp Pulse Resp BP Pulse Ox 01/20/21 07:04 97.1 F 104 H 16 169/113 H 100 - My Orders Last 24 Hours: My Active Orders 01/20/21 07:10 HYDROmorphone [Dilaudid] 1 mg IM ONETIME ONE Ketorolac [Toradol] 60 mg IM ONETIME ONE - Assessment/Plan Last 24 Hours: My Active Orders 01/20/21 07:10 HYDROmorphone [Dilaudid] 1 mg IM ONETIME ONE Ketorolac [Toradol] 60 mg IM ONETIME ONE
[2021-01-20 08:46] VITALS: BP 146/91
== END 2021-01-20 07:40 | disposition home or self-care (01) ==
LOC: JD.ED 06:50
DX: K04.7 Periapical abscess without sinus (principal); K02.9 Dental caries, unspecified
CPT/HCPCS: 96372; 99282; J1170; J1885

== ENCOUNTER 2021-10-01 16:59 | Emergency (ER) | payer SELFPAY ==
[2021-10-01 17:14] VITALS: BP 153/83; PULSE 98
[2021-10-01] MEDS ORDERED: Ketorolac 30 MG/ML SDV IVPUSH ONE (17:19)
[2021-10-01] MEDS ORDERED: Sodium Chloride 0.9% 10 ML Syringe FLUSH PRN (17:19)
[2021-10-01] MEDS: Ondansetron 4 MG/2 ML SDV IVPUSH ONE ×2 (17:37→17:48)
[2021-10-01] MEDS: Sodium Chloride 0.9% 1,000 ML IV ONE ×2 (17:37→17:50)
[2021-10-01] MEDS ORDERED: Ondansetron 4 MG Tab.DIS PO ONE (17:47)
[2021-10-01 18:14] LABS: CORONAVIRUS COVID-19 NAA POSITIVE (NEGATIVE)
== END 2021-10-01 18:49 | disposition home or self-care (01) ==
LOC: JD.ED 16:59
DX: U07.1 COVID-19 (principal); I10 Essential (primary) hypertension; F17.210 Nicotine dependence, cigarettes, uncomplicated
CPT/HCPCS: 0240U; 96374; 99283; A9270; J1885; J3490; J2405; J7030

== ENCOUNTER 2022-05-26 19:39 | Emergency (ER) | payer SELFPAY ==
[2022-05-26] MEDS ORDERED: Metoclopramide 10 MG/2 ML SDV IVPUSH ONE (21:50)
[2022-05-26] MEDS ORDERED: diphenhydrAMINE 50 MG/ML SDV IVPUSH ONE (21:51)
[2022-05-26] MEDS ORDERED: HYDROmorphone 0.5 MG/0.5 ML Syringe IVPUSH ONE (21:51)
[2022-05-26] MEDS ORDERED: Dextrose 5%-0.9% NaCl 1,000 ML IV SCH (22:00)
[2022-05-26] MEDS ORDERED: Ketorolac 30 MG/ML SDV IVPUSH SCH (22:00)
== END 2022-05-26 23:38 | disposition home or self-care (01) ==
LOC: JD.ED 19:39 → MERGE 19:39 → JD.ED 23:38
DX: G43.909 Migraine, unspecified, not intractable, without status migrainosus (principal); E04.1 Nontoxic single thyroid nodule; I48.91 Unspecified atrial fibrillation; I10 Essential (primary) hypertension
CPT/HCPCS: 96361; 96374; 96375; 99283; J1170; J1200; J1885; J2765; J7042

== ENCOUNTER 2023-01-24 18:47 | Emergency (ER) | payer SELFPAY ==
[2023-01-24] MEDS ORDERED: Ketorolac 60 MG/2 ML SDV IM ONE (19:43)
[2023-01-24] MEDS ORDERED: Amoxicillin/Clavulanate K 875-125 MG Tab PO ONE (19:43)
[2023-01-24] MEDS ORDERED: Acetaminophen/Codeine 300-30 MG Tab PO ONE (20:35)
== END 2023-01-24 20:44 | disposition home or self-care (01) ==
LOC: JD.ED 18:47
DX: K02.9 Dental caries, unspecified (principal); I10 Essential (primary) hypertension; F17.210 Nicotine dependence, cigarettes, uncomplicated
CPT/HCPCS: 96372; 99282; A9270; J1885

== ENCOUNTER 2023-10-21 00:10 | Emergency (ER) | payer SELFPAY ==
[2023-10-21] MEDS: Fluorescein 1 MG Ophth Strip EYEBOTH ONE (01:30)
[2023-10-21] MEDS: Dexamethasone/Tobramycin 0.1-0.3% Ophth Susp 5 ML Bottle EYELF SCH (01:58)
== END 2023-10-21 02:00 | disposition home or self-care (01) ==
LOC: JD.ED 00:10
DX: H16.002 Unspecified corneal ulcer, left eye (principal); I10 Essential (primary) hypertension; F17.210 Nicotine dependence, cigarettes, uncomplicated; Z79.899 Other long term (current) drug therapy
CPT/HCPCS: 99283; A9270; 99282